=== PATIENT | female | born 1995 | race Caucasian/White ===

== ENCOUNTER 2020-02-19 12:17 | Emergency (ER) | payer SELFPAY ==
[2020-02-19 12:30] VITALS: BP 134/72; PULSE 91; RESP 16; TEMP 37.1; O2SAT 99
--- NOTE | 2020-02-19 12:38 | ED.SKABFB ---
HPI - Skin/Abscess/Foreign Bdy General Chief complaint: Skin/Abscess/Foreign Body Stated complaint: rash Time Seen by Provider: 02/19/20 12:30 Source: patient Mode of arrival: ambulatory Limitations: no limitations History of Present Illness HPI narrative: Xochitl Diaz is a 24 yo female with no PMH who comes to express care with 1 day history of red itchy rash on ankle that is spread to the left side of her lower back and now onto her cheek. She states she was wearing sandals and was walking through tall grass yesterday. Related Data Allergies Allergy/AdvReac Type Severity Reaction Status Date / Time copper Allergy Mild Rash Verified 02/19/20 12:34 nickel Allergy Mild Rash Verified 02/19/20 12:34 silver Allergy Mild Rash Verified 02/19/20 12:34 No Known Drug Allergies Allergy Unknown Other Verified 02/19/20 12:34 METALS Allergy Mild RASH Uncoded 02/19/20 12:34 Review of Systems Review of Systems: Narrative: CONSTITUTIONAL: Denies fever, chills, sweats. EYES: Denies visual changes, redness, discharge. ENT: Denies rhinorrhea, congestion, sore throat, otalgia. CARDIOVASCULAR: Denies chest pain, palpitations, edema. RESPIRATORY: Denies dyspnea, wheezing, cough GASTROINTESTINAL: Denies abdominal pain, nausea, vomiting, diarrhea. GENITOURINARY: Denies dysuria, hematuria, abnormal discharge SKIN: Denies rash or itching. Rash with itching on right ankle lower left back right cheek upper left cheek NEUROLOGIC: Denies numbness, or focal weakness. PSYCHIATRIC: Denies anxiety or depression. PMFSH Surgical History Surgical History (Updated 02/19/20 @ 12:41 by Janet Payne CNP) H/O knee surgery Family History Family History Other Breast cancer Social History Social History (Updated 02/19/20 @ 12:41 by Janet Payne CNP) Smoking status: Current every day smoker Tobacco type: e-cigarettes/vaping Alcohol intake: never Gender identity (if verbalized by the patient): Female Comments Social hx reviewed, there is no medical family or social history that is relevant to the current problem for which the patient is being seen today Exam Narrative: Exam Narrative: GENERAL: This is a well-nourished, well-developed patient, in mild distress. HEAD: normocephalic, atraumatic. EYES: Sclera clear/white. Vision is grossly intact. EARS: External ears normal, auditory canals clear and without drainage, TMs normal without perforation. Hearing grossly intact. NOSE: External nose normal without nasal discharge, nares without redness, no rhinorrhea. THROAT: Mucous membranes moist, posterior pharynx NECK: Neck supple, non-tender CARDIOVASCULAR: Regular rate and rhythm without murmurs, gallops, or rubs. RESPIRATORY: Clear to auscultation. Breath sounds equal bilaterally. No wheezes, rales, or rhonchi. GASTROINTESTINAL: Abdomen soft, non-tender, SKIN: warm, intact with no suspicious lesions or rash, good texture and turgor. Maculopapular rash on medial side of right ankle, lower left back, light rash on left upper cheek, no vesicular lesions NEURO: awake, alert, and oriented to person, place and time. There were no obvious focal neurologic abnormalities. Steady gait EXTREMITIES: Normal range of motion. BACK: Nontender without deformity Course Course Emergency Course: Started taper pack and discussed use of Benadryl lotion and tablets for itching Vital Signs Vital signs: Vital Signs Temperature 98.7 F 02/19/20 12:30 Pulse Rate 91 02/19/20 12:30 Respiratory Rate 16 02/19/20 12:30 Blood Pressure 134/72 02/19/20 12:30 Pulse Oximetry 99 02/19/20 12:30 Temperature 98.7 F 02/19/20 12:30 Pulse Rate 91 02/19/20 12:30 Respiratory Rate 16 02/19/20 12:30 Blood Pressure 134/72 02/19/20 12:30 Pulse Oximetry 99 02/19/20 12:30 MDM - Skin/Abscess/Foreign Bdy Differential Diagnosis Differential diagnosis: Likely cellulitis, insect bites and
== END 2020-02-19 12:50 | disposition home or self-care (01) ==
PROVIDERS: Emergency Provider Nurse Practitioner
DX: L23.7 Allergic contact dermatitis due to plants, except food (principal); F17.290 Nicotine dependence, other tobacco product, uncomplicated
CPT/HCPCS: 99213; G0463

== ENCOUNTER 2020-09-02 20:07 | Emergency (ER) | payer MEDICAID, SELFPAY ==
[2020-09-02 20:12] VITALS: BP 136/78; PULSE 90; RESP 16; TEMP 36.9; O2SAT 100
--- NOTE | 2020-09-02 21:50 | ED.WOUNDLAC ---
HPI - Wound/Laceration General Chief Complaint: Wound/Laceration Stated Complaint: ?SPIDER BITES Time Seen by Provider: 09/02/20 20:19 Source: patient Mode of arrival: ambulatory Limitations: no limitations History of Present Illness HPI narrative: Patient is a 25-year-old female with a history of cellulitis, abscess who presents for evaluation of possible insect bite to the back of her left leg and left third toe. Patient reports itching, redness at the site. She has had some drainage from the lesion on the back of her left leg. She noticed these this morning. Patient has not tried any [id number] medications. She does have a history of cellulitis and axillary abscesses that have been drained in the past. Patient denies any purulent discharge. No other lesions. Related Data Allergies Allergy/AdvReac Type Severity Reaction Status Date / Time copper Allergy Mild Rash Verified 09/02/20 20:16 nickel Allergy Mild Rash Verified 09/02/20 20:16 silver Allergy Mild Rash Verified 09/02/20 20:16 No Known Drug Allergies Allergy Unknown Other Verified 09/02/20 20:16 METALS Allergy Mild RASH Uncoded 09/02/20 20:16 Review of Systems Review of Systems: Narrative: CONSTITUTIONAL: Denies fever CARDIOVASCULAR: Denies chest pain RESPIRATORY: Denies cough or dyspnea. GASTROINTESTINAL: Denies abdominal pain SKIN: Denies rash, reports skin lesion/irritation to back of left leg and left toe MUSCULOSKELETAL: Denies back pain NEUROLOGIC: Denies headache PMFSH Past Medical History Medical History (Updated 09/02/20 @ 22:01 by Lexi Stapleton MD) Abscess Cellulitis Surgical History Surgical History (Updated 09/02/20 @ 22:01 by Lexi Stapleton MD) H/O knee surgery Family History Family History Other Breast cancer Social History Social History Smoking status: Current every day smoker Tobacco type: e-cigarettes/vaping Alcohol intake: never Gender identity (if verbalized by the patient): Female Exam Narrative: Exam Narrative: GENERAL: Awake, alert, conversant HEAD: Normocephalic, atraumatic. EYES: PERRLA and EOMI. ENT: Nares clear, no rhinorrhea or epistaxis. Mucous membranes moist. NECK: Supple. CHEST: No respiratory distress, breathing even and non labored HEART: Regular rate, sinus rhythm ABDOMEN:Non distended, non tender EXTREMITIES: Normal range of motion. No edema. SKIN: Warm, dry, 1 cm superficial lesion draining serous discharge to the posterior aspect of the left calf. Mild induration and erythema. No purulent discharge. No crepitus. No calf tenderness. No linear streaking erythema. Small area redness to the left, third toe. Nontender. No vesicles. No purulent discharge. No paronychia. NEURO:No focal deficits. Alert and oriented x3 Course Vital Signs Vital signs: Vital Signs Temperature 36.9 C 09/02/20 20:12 Pulse Rate 90 09/02/20 20:12 Respiratory Rate 16 09/02/20 20:12 Blood Pressure 136/78 09/02/20 20:12 Pulse Oximetry 100 09/02/20 20:12 Temperature 36.9 C 09/02/20 20:12 Pulse Rate 90 09/02/20 20:12 Respiratory Rate 16 09/02/20 20:12 Blood Pressure 136/78 09/02/20 20:12 Pulse Oximetry 100 09/02/20 20:12 MDM - Wound/Laceration MDM Narrative Medical decision making narrative: Patient presented for a lesion to the back of the left calf and left toe. At the time of assessment, ABCs are intact and vital signs are stable. No signs to be suggestive of severe cellulitis. No abscess that is drainable. Perhaps this is some sort of insect bite versus developing cellulitis. Given the induration and redness present on the back of the left calf, I did want to start the patient on antibiotics especially given her predisposition to cellulitis and abscess. Patient advised that she could take Benadryl for itchiness. She was advised to keep the area aziza
== END 2020-09-02 22:03 | disposition home or self-care (01) ==
PROVIDERS: Emergency Provider Emergency Medicine
DX: L98.9 Disorder of the skin and subcutaneous tissue, unspecified (principal)
CPT/HCPCS: 99283

== ENCOUNTER 2021-07-25 17:10 | Emergency (ER) | payer OTHER, SELFPAY ==
[2021-07-25 17:15] VITALS: BP 128/72; PULSE 108; RESP 14; TEMP 36.6; O2SAT 99
[2021-07-25 17:28] LABS: Basophils Percent Auto 0.3 % (0.2-1.2); Eosinophils Absolute Auto 0.2 K/mm3 (0-0.3); Eosinophils Percent Auto 2.3 % (0-4.4); Hematocrit 42.4 % (37.0-47.0); Immature Granulocyte Absolute 0.02 K/mm3 (0.00-0.031); Immature Granulocyte Percent A 0.3 % (0-0.5); Lymphocytes Absolute Auto 1.11 K/mm3 (0.9-3.2); Lymphocytes Percent Auto 14.5 % (18.3-44.2); Mean Corpuscular Hemoglobin 29.4 pg (26-34); Mean Corpuscular Volume 88.9 fl (80-100); Mean Platelet Volume 10.2 fl (7.4-10.4); Monocytes Absolute Auto 0.5 K/mm3 (0.1-0.6); Monocytes Percent Auto 6.3 % (2.6-8.5); Neutrophils Absolute Auto 5.9 K/mm3 (1.3-6.7); Neutrophils Percent Auto 76.3 % (45.5-73.1); Platelet Count Result 254 k/mm3 (150-375); Red Blood Count 4.77 M/mm3 (4.2-5.4); Red Cell Distribution Width 12.7 % (11.5-14.5); White Blood Count 7.7 K/mm3 (4.5-10.0)
[2021-07-25 17:41] LABS: Anion Gap 10 mmol/L (8-16); Blood Urea Nitrogen 13 mg/dL (7-17); Calcium 9.3 mg/dL (8.4-10.2); Carbon Dioxide 23 mmol/L (22-30); Chloride 104 mmol/L (98-107); Estimated CRCL calculation 103 ml/min; Estimated Glomerular Filt Rate > 60; Glucose 95 mg/dL (65-110); Potassium 4.1 mmol/L (3.4-5.0); Sodium 137 mmol/L (137-145)
[2021-07-25 17:58] VITALS: BP 119/78; PULSE 76; RESP 18; O2SAT 99
[2021-07-25 18:00] LABS: Add Urine Microscopic? YES; Appearance Urine Cloudy (Clear); Bilirubin Urine Negative (Negative); Blood Urine Negative (Negative); Color Urine Yellow (Yellow); Glucose Urine UA Negative (Negative); Ketones Urine Negative (Negative); Leukocyte Esterase Ur Negative LEU/UL (Negative); Nitrate Urine Negative (Negative); Protein Urine Negative (Negative); Specific Grav Ur 1.026 (1.001-1.035); Urobilinogen Urine Negative mg/dL (<2.0)
[2021-07-25 18:02] LABS: Bacteria Urine Trace /hpf; Mucus Urine Rare /lpf; Squamous Epithelial Cell Urine Moderate /hpf (Few)
[2021-07-25] MEDS: SODIUM CHLORIDE 0.9% IV 1,000 ML 999 ML IV CONT (18:26)
[2021-07-25] MEDS: KETOROLAC 30 MG/ML VIAL (*BKC) IV PUSH (18:26)
--- NOTE | 2021-07-25 18:57 | ED.NAVMDI ---
HPI - Nausea/Vomiting/Diarrhea General Chief complaint: Nausea/Vomiting/Diarrhea Stated complaint: diarrhea/chills/back pain Time Seen by Provider: 07/25/21 18:05 Source: patient and family Mode of arrival: ambulatory Limitations: no limitations History of Present Illness HPI Narrative: 26 years old white female presents with general body aches, low-grade fever, nausea, frequent watery diarrhea, lethargy and no energy started this morning. Patient is not vaccinated for COVID-19. Patient denies sick contact. Patient denies any sick family member. Related Data Allergies Allergy/AdvReac Type Severity Reaction Status Date / Time copper Allergy Mild Rash Verified 07/25/21 18:00 nickel Allergy Mild Rash Verified 07/25/21 18:00 silver Allergy Mild Rash Verified 07/25/21 18:00 No Known Drug Allergies Allergy Unknown Other Verified 07/25/21 18:00 METALS Allergy Mild RASH Uncoded 07/25/21 18:00 Review of Systems Review of Systems: CONSTITUTIONAL: Denies fever, chills, or sweats. EYES: Denies visual changes, redness, or discharge. ENT: Denies rhinorrhea, congestion, sore throat, or otalgia. CARDIOVASCULAR: Denies chest pain, palpitations, or edema. RESPIRATORY: Denies cough or dyspnea. GASTROINTESTINAL: Denies abdominal pain, nausea, vomiting, or diarrhea. GENITOURINARY: Denies dysuria or hematuria. SKIN: Denies rash or itching. MUSCULOSKELETAL: Denies back pain, joint pain, or myalgia. NEUROLOGIC: Denies headache, numbness, or weakness. PSYCHIATRIC: Denies anxiety or depression. PMFSH Past Medical History Medical History Abscess Cellulitis Surgical History Surgical History H/O knee surgery Family History Family History Other Breast cancer Social History Social History Smoking status: Current every day smoker Tobacco type: e-cigarettes/vaping Alcohol intake: never Gender identity (if verbalized by the patient): Female Exam Narrative: General appearance: Well-developed, well-nourished Skin: Normal color Head: Normocephalic, nontraumatic Eyes: Clear conjunctiva ENT: Oropharynx normal, ears normal, nose normal Neck: Supple, nontender Chest and respiratory: Airway patent, no respiratory distress, no accessory muscle use Heart: Regular rate/rhythm Abdomen: Soft, nontender, no organomegaly, quiet bowel sounds Vascular: Normal peripheral pulses, normal capillary refill. Musculoskeletal: Normal range of motion, nontender back Neurologic: Alert and oriented ?3, [employer] is normal as tested, no gross motor deficit Course Course Emergency Course: Stable, improved Vital Signs Vital signs: Vital Signs Temperature 36.6 C 07/25/21 17:15 Pulse Rate 108 H 07/25/21 17:15 Respiratory Rate 14 07/25/21 17:15 Blood Pressure 128/72 07/25/21 17:15 Pulse Oximetry 99 07/25/21 17:15 Temperature 36.6 C 07/25/21 17:15 Pulse Rate 76 07/25/21 17:58 Respiratory Rate 18 07/25/21 17:58 Blood Pressure 119/78 07/25/21 17:58 Pulse Oximetry 99 07/25/21 17:58 MDM - Nausea/Vomiting/Diarrhea MDM Narrative Medical decision making narrative: Viral gastroenteritis is my concern. Covid test ordered, IV fluid, labs. Differential Diagnosis Differential diagnosis: Likely gastroenteritis and dehydration Lab Data Result diagrams: 07/25/21 17:21 07/25/21 17:21 Labs: Lab Results 07/25/21 07/25/21 07/25/21 Range/Units 17:21 17:21 17:37 WBC 7.7 (4.5-10.0) K/mm3 RBC 4.77 (4.2-5.4) M/mm3
[2021-07-25 19:32] VITALS: BP 105/66; PULSE 78; RESP 18; O2SAT 99
[2021-07-27 19:26] LABS: SARS-CoV-2 RNA PCR Negative
== END 2021-07-25 19:34 | disposition home or self-care (01) ==
PROVIDERS: Emergency Provider Emergency Medicine; PCP Family Medicine
DX: K52.9 Noninfective gastroenteritis and colitis, unspecified (principal); Z20.822 Contact with and (suspected) exposure to COVID-19; F17.290 Nicotine dependence, other tobacco product, uncomplicated
CPT/HCPCS: 36415; 80048; 81001; 81025; 85025; 96361; 96374; 99284; C9803; J1885; J7030; U0003; U0005

== ENCOUNTER 2021-08-05 22:10 | Emergency (ER) | payer OTHER, SELFPAY ==
[2021-08-05 22:19] VITALS: BP 134/81; PULSE 88; RESP 16; TEMP 36.7; O2SAT 99
--- NOTE | 2021-08-05 22:27 | ED.DENTAL ---
HPI - Dental/Oral General Chief complaint: Dental/Oral Stated complaint: tooth abcess Time Seen by Provider: 08/05/21 22:13 History of Present Illness HPI Narrative: Patient is a 26-year-old female who presents ER with dental abscess. Has developed swelling to the intraoral aspect of the left lower jaw throughout the day. Radiates into her neck and ear. No fevers or chills or sweats. No difficulty breathing or swallowing. Related Data Allergies Allergy/AdvReac Type Severity Reaction Status Date / Time copper Allergy Mild Rash Verified 08/05/21 22:21 nickel Allergy Mild Rash Verified 08/05/21 22:21 silver Allergy Mild Rash Verified 08/05/21 22:21 No Known Drug Allergies Allergy Unknown Other Verified 08/05/21 22:21 METALS Allergy Mild RASH Uncoded 08/05/21 22:21 Review of Systems Constitutional: Constitutional: Denies chills and Denies fever(s) ENT: Denies dysphagia, Denies nasal congestion and Denies sore throat Comments: Dental abscess PMFSH Past Medical History Medical History Abscess Cellulitis Surgical History Surgical History H/O knee surgery Family History Family History Other Breast cancer Social History Social History Smoking status: Current every day smoker Tobacco type: e-cigarettes/vaping Alcohol intake: never Gender identity (if verbalized by the patient): Female Exam Narrative: GENERAL: Well-appearing, well-nourished, and in no acute distress. HEAD: Normocephalic, atraumatic. ENT: Mucous membranes moist. Abscess at the base of tooth 18 and 19. NEURO: Alert and oriented x3. PSYCH: Normal mood and affect. Course Course Emergency Course: Patient tolerated drainage. Discharge home. Vital Signs Vital signs: Vital Signs Temperature 98.1 F 08/05/21 22:19 Pulse Rate 88 08/05/21 22:19 Respiratory Rate 16 08/05/21 22:19 Blood Pressure 134/81 08/05/21 22:19 Pulse Oximetry 99 08/05/21 22:19 Temperature 98.1 F 08/05/21 22:19 Pulse Rate 88 08/05/21 22:19 Respiratory Rate 16 08/05/21 22:19 Blood Pressure 134/81 08/05/21 22:19 Pulse Oximetry 99 08/05/21 22:19 Procedures Abscess I/D oral: Date of Incision: 08/05/21 Time of Incision: 22:25 Technique: needle aspiration Irrigation: No Packing used?: none I&D Results: Pus Discharge Plan Discharge Clinical Impression: Dental abscess Patient Disposition: Home, Self-Care Condition: Stable Instructions: Antibiotic Form, Dental Abscess (ED) Additional Instructions: Return the ER if you cannot breathe, you cannot swallow, you have worsening swelling within the mouth, you have other concerns. Prescriptions: New amoxicillin-pot clavulanate [Augmentin] 875-125 mg tablet 1 tablet PO Q12H Qty: 20 RF: 0 hydrocodone-acetaminophen 5-325 mg tablet 1 tablet PO Q6H PRN (Reason: pain) Qty: 10 RF: 0 No Action loperamide [Imodium A-D] 2 mg capsule 2 mg PO Q4H PRN (Reason: loose stool) Qty: 14 RF: 0 cephalexin [Keflex] 500 mg capsule 500 mg PO Q8H 10 Days Qty: 30 RF: 0 diphenhydramine HCl [Benadryl] 25 mg capsule 25 mg PO TID PRN (Reason: allergic reaction) Qty: 14 RF: 0 acetaminophen 500 mg capsule 500 mg PO Q6H PRN (Reason: fever or pain) Qty: 30 RF: 0 Follow-up/Referrals: Dental Referral Line [Outside] - 1 Week Escamilla,MD James [Primary Care Provider] - Stand Alone Forms: Work/School Release IP
[2021-08-05 23:10] VITALS: BP 130/93; PULSE 81; RESP 18; TEMP 36.3; O2SAT 97
== END 2021-08-05 23:11 | disposition home or self-care (01) ==
PROVIDERS: Emergency Provider Emergency Medicine; PCP Family Medicine
DX: K04.7 Periapical abscess without sinus (principal); F17.290 Nicotine dependence, other tobacco product, uncomplicated
CPT/HCPCS: 41800; 99283

== ENCOUNTER 2024-02-27 10:11 | Emergency (ER) | payer OTHER, SELFPAY ==
[2024-02-27 10:21] VITALS: BP 137/81; PULSE 79; RESP 16; TEMP 36.8; O2SAT 100
--- NOTE | 2024-02-27 10:29 | ED.URI ---
HPI - URI/Sore Throat General Chief Complaint: Upper Respiratory Infection Stated Complaint: Sore Throat History of Present Illness HPI Narrative: 28-year-old female presented for complaint of sore throat cough over the past 2 days. Denies shortness breath, wheezing, nausea, vomiting, fevers or lethargy. Denies sick contacts. She took Tylenol yesterday for symptoms. Related Data Home Medications Medication Instructions Recorded Confirmed lisdexamfetamine 20 mg capsule 20 mg PO DAILY 02/27/24 02/27/24 (Vyvanse) Allergies Allergy/AdvReac Type Severity Reaction Status Date / Time copper Allergy Mild Rash Verified 02/27/24 10:34 nickel Allergy Mild Rash Verified 02/27/24 10:34 silver Allergy Mild Rash Verified 02/27/24 10:34 No Known Drug Allergies Allergy Unknown Other Verified 02/27/24 10:34 METALS Allergy Mild RASH Uncoded 02/27/24 10:34 Review of Systems Review of Systems: CONSTITUTIONAL: Denies body aches, fever, chills, or sweats. EYES: Denies visual changes, redness, or discharge. ENT: Reports sore throat Denies rhinorrhea, congestion, or otalgia. CARDIOVASCULAR: Denies chest pain, palpitations, or edema. RESPIRATORY: Denies dyspnea. SKIN: Denies rash, itching, or wounds. MUSCULOSKELETAL: Denies back pain, joint pain, or myalgia. NEUROLOGIC: Denies headache PMFSH Past Medical History Medical History Abscess Cellulitis Surgical History Surgical History H/O knee surgery Family History Family History Other Breast cancer Social History Social History Smoking status: Current every day smoker Tobacco type: e-cigarettes/vaping Alcohol intake: never Gender identity (if verbalized by the patient): Female Exam Narrative: GENERAL: well-appearing, no acute distress. EYES: conjunctivae clear ENT: Mucous membranes moist. TM pearly jacome with normal light reflex bilaterally; no tragal tenderness. Oropharynx not erythematous without lesions. Tonsils enlarged 1+ and without exudate. No drooling, no hoarseness, no trismus, uvula midline. No tripod positioning, hot potato voice, or soft palate swelling. NECK: Supple. No lymphadenopathy CHEST: Clear to auscultation, breath sounds equal. No respiratory distress, speaks in full sentences. HEART: Regular rate and rhythm. No murmur heard. SKIN: Warm, dry, no rash. NEURO: Alert and oriented x3. Course Course Emergency Course: Patient is aware of diagnosis, understands and agrees to treatment plan. Anticipatory guidance given. Patient agrees to follow-up as directed and is aware of reasons to seek care at the emergency department. Portions of this record may have been created with voice recognition software Level of Care: Express Care Visit Vital Signs Vital signs: Vital Signs Temperature 98.2 F 02/27/24 10:21 Pulse Rate 79 02/27/24 10:21 Respiratory Rate 16 02/27/24 10:21 Blood Pressure 137/81 02/27/24 10:21 Pulse Oximetry 100 02/27/24 10:21 Oxygen Delivery Room Air 02/27/24 10:21 Temperature 98.2 F 02/27/24 10:21 Pulse Rate 79 02/27/24 10:21 Respiratory Rate 16 02/27/24 10:21 Blood Pressure 137/81 02/27/24 10:21 Pulse Oximetry 100 02/27/24 10:21 Oxygen Delivery Room Air 02/27/24 10:21 MDM - URI/Sore Throat MDM Narrative Medical decision making narrative: Neg strep result reviewed with pt. Advise supportive treatments. Patient is appropriate for outpatient treatment and follow-up. Differential Diagnosis Differential diagnosis: Likely upper respiratory infection, viral infection and pharyngitis Lab Data Labs: Strep Screen Presumptive Negative *(Reference Range: Negative)* Discharge Pl
== END 2024-02-27 10:45 | disposition home or self-care (01) ==
PROVIDERS: Emergency Provider Nurse Practitioner Family; PCP Family Medicine
DX: J02.9 Acute pharyngitis, unspecified (principal); F17.290 Nicotine dependence, other tobacco product, uncomplicated
CPT/HCPCS: 87081; 87880; 99213; G0463

== ENCOUNTER 2024-09-25 08:03 | Emergency (ER) | payer OTHER, SELFPAY ==
[2024-09-25 08:08] VITALS: BP 140/110; PULSE 103; RESP 16; TEMP 36.6; O2SAT 98
[2024-09-25 08:30] VITALS: BP 147/86; PULSE 92; RESP 16; O2SAT 99
[2024-09-25] MEDS: ALPRAZolam (*CRX) 0.5 MG TABLET PO (08:48)
[2024-09-25 09:15] VITALS: BP 126/87; PULSE 81; RESP 16; O2SAT 98
--- NOTE | 2024-09-25 09:36 | ED.GENADULT ---
HPI - General Adult General Chief complaint: Anxiety Stated complaint: anxiety Time Seen by Provider: 09/25/24 08:19 History of Present Illness HPI narrative: Patient is a 29-year-old female who presents ER with anxiety. Not currently on anxiety medication. She does take medicine for ADHD. 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 She reports she had to leave work because she is just crying. No SI or HI. No alleviating factors identified. Patient reports she will get anxious with full then caused chest tightness and dyspnea. No heart issues. Related Data Home Medications ?Medication ?Instructions ?Recorded ?Confirmed ?Last Taken ?Type lisdexamfetamine 20 mg capsule 20 mg PO DAILY 02/27/24 02/27/24 Unknown History (Vyvanse) Allergies Allergy/AdvReac Type Severity Reaction Status Date / Time copper Allergy Mild Rash Verified 02/27/24 10:34 nickel Allergy Mild Rash Verified 02/27/24 10:34 silver Allergy Mild Rash Verified 02/27/24 10:34 No Known Drug Allergies Allergy Unknown Other Verified 02/27/24 10:34 METALS Allergy Mild RASH Uncoded 02/27/24 10:34 Review of Systems Review of Systems: All systems reviewed & are unremarkable except as noted in HPI and below Constitutional: Constitutional: Reports no additional constitutional complaints Cardiovascular: Cardiovascular: Reports no additional cardiovascular complaints Respiratory: Respiratory: Reports no additional respiratory complaints Psychiatric: Psychiatric: Reports anxiety, Denies homicidal ideation and Denies suicidal ideation PMFSH Past Medical History Medical History (Updated 09/25/24 @ 10:14 by Jr Aguiar MD) Anxiety ADHD Abscess Cellulitis Surgical History Surgical History H/O knee surgery Family History Family History Other Breast cancer Social History Social History Smoking status: Current every day smoker Tobacco type: e-cigarettes/vaping Alcohol intake: never Substance use type: does not use Gender identity (if verbalized by the patient): Female Exam Narrative: GENERAL: Tearful-appearing, well-nourished, and in no acute distress. HEAD: Normocephalic, atraumatic. ENT: Mucous membranes moist. CHEST: Clear to auscultation. No respiratory distress. HEART: Regular rate and rhythm. Normal peripheral pulses. ABDOMEN: Soft, nontender, nondistended, normal active bowel sounds. EXTREMITIES: Normal range of motion. No edema. NEURO: lert and oriented x3. PSYCH: Anxious and tearful. No HI/SI. Course Course Emergency Course: Xanax given for panic attack. Patient feels better. She has no medical complaints. Discharge home. Vital Signs Vital signs: Vital Signs Temperature 98 F 09/25/24 08:08 Pulse Rate 103 H 09/25/24 08:08 Respiratory Rate 16 09/25/24 08:08 Blood Pressure 140/110 H 09/25/24 08:08 Pulse Oximetry 98 09/25/24 08:08 Oxygen Delivery Room Air 09/25/24 08:08 Temperature 98 F 09/25/24 08:08 Pulse Rate 81 09/25/24 09:15 Respiratory Rate 16 09/25/24 09:15 Blood Pressure 126/87 09/25/24 09:15 Pulse Oximetry 98 09/25/24 09:15 Oxygen Delivery Room Air 09/25/24 08:08 Medical Decision Making Vital Signs Vital Signs: Vital Signs Temperature 98 F 09/25/24 08:08 Pulse Rate 103 H 09/25/24 08:08 Respiratory Rate 16 09/25/24 08:08 Blood Pressure 140/110 H 09/25/24 08:08 Pulse Oximetry 98 09/25/24 08:08 Oxygen Delivery Room Air 09/25/24 08:08 Temperature 98 F 09/25/24 08:08 Pulse Rate 81 09/25/24 09:15 Respiratory Rate 16 09/25/24 09:15 Blood Pressure 126/87 09/25/24 09:15 Pulse Oximetry 98 09/25/24 09:15 Oxygen Delivery Room Air 09/25/24 08:08 Discharge Plan Discharge Clinical Impression: Anxiety attack Patient Disposition: Home, Self-Care Condition: Stable Instructions: Anxiety (ED) Additional Instructions: Please return to the emergency department if you develop severe and persistent chest pain, difficulty breathing, dizziness, leg swelling or if you are coughing up blood as these can be signs of a medical emergency. Please call your doctor for a follow up appointment to determine the need for further testing. Patient Language: Upper Sorbian Prescriptions: New alprazolam [Xanax] 0.25 mg tablet 0.25 mg PO TID PRN (Reason: anxiety) Qty: 7 0RF No Action lisdexamfetamine [Vyvanse] 20 mg capsule 20 mg PO DAILY Follow-up/Referrals: Andi,MD James [Primary Care Provider] -
== END 2024-09-25 10:38 | disposition home or self-care (01) ==
PROVIDERS: Emergency Provider Emergency Medicine; PCP Family Medicine
DX: F41.9 Anxiety disorder, unspecified (principal); F90.9 Attention-deficit hyperactivity disorder, unspecified type; F17.290 Nicotine dependence, other tobacco product, uncomplicated
CPT/HCPCS: 99283; A9270

== ENCOUNTER 2024-12-16 13:46 | Emergency (ER) | payer SELFPAY ==
--- NOTE | ~2024-12-16 | XR_ITS ---
XR knee RT min 4V Ordering provider: Valentina Meredith PA-C History: . right knee pain . Comparison: None. FINDINGS: BONES: No definite acute fracture or dislocation. Ossification of the insertion of the patellar tendon is noted. Lucency is seen in the area with possi bility of fracture in the tibial spine cannot be excluded. Clinical evaluation for tenderness advised . JOINT SPACES: Normal. SOFT TISSUES: Normal. IMPRESSION: No definite acute osseous abnormality right knee. Ossification of the patellar tendon versus fracture in the tibial spine. Reviewed, dictated and finalized at location A.
--- NOTE | ~2024-12-16 | XR_ITS ---
XR chest 2V Ordering provider: Valentina Meredith PA-C History: 29 years Female with . cough . Comparison: April 18, 2019 FINDINGS: MEDIASTINUM: The cardiac silhouette is not enlarged. LUNGS: No infiltrates, effusions or pneumothorax. OTHER: No free air under the diaphragm. IMPRESSION: No acute cardiopulmonary pathology. Reviewed, dictated and finalized at location A.
[2024-12-16 14:25] VITALS: BP 139/88; PULSE 92; RESP 16; TEMP 36.4; O2SAT 100
--- NOTE | 2024-12-16 14:58 | ED.FEMALEGU ---
HPI - Female Genitourinary General Chief complaint: Urogenital-Female <Valentina Meredith PA-C - Last Filed: 12/19/24 12:17> Stated complaint: multiple complaint, UTI, knee pain sick <Valentina Meredith PA-C - Last Filed: 12/19/24 12:17> Time Seen by Provider: 12/16/24 14:58 <Valentina Meredith PA-C - Last Filed: 12/19/24 12:17> Focused HPI: This is a 29 year old female that presents to the ER for multiple complaints. Reports left flank pain. Concerned she may have a kidney infection. Reports she has also been struggling with cold symptoms. Reports cough, congestion, headache, sore throat. Also reports right knee pain. Reports she tripped and fell onto it. GENERAL: Well-appearing, well-nourished, and in no acute distress. HEAD: Normocephalic, atraumatic. CHEST: Clear to auscultation. ?No respiratory distress. HEART: Regular rate and rhythm.? NEURO: ?Alert and oriented x3. Patient screened in triage and initial orders placed.? ?Additional care and disposition to be based upon?diagnostic testing and treatment. <Valentina Meredith PA-C - Last Filed: 12/19/24 12:17> Source: patient <Kevin Oleary PA-C - Last Filed: 12/17/24 02:15> Mode of arrival: ambulatory <Kevin Oleary PA-C - Last Filed: 12/17/24 02:15> Limitations: no limitations <Kevin Oleary PA-C - Last Filed: 12/17/24 02:15> History of Present Illness HPI Narrative: Agree with MSE note above. <TERRY Pink Last Filed: 12/17/24 02:15> Related Data Home medications: Home Medications ?Medication ?Instructions ?Recorded ?Confirmed ?Last Taken ?Type lisdexamfetamine 20 mg capsule 20 mg PO DAILY 02/27/24 02/27/24 Unknown History (Jm) <TERRY Aguilar Last Filed: 12/19/24 12:17> Allergies/Adverse reactions: Allergies Allergy/AdvReac Type Severity Reaction Status Date / Time copper Allergy Mild Rash Verified 02/27/24 10:34 nickel Allergy Mild Rash Verified 02/27/24 10:34 silver Allergy Mild Rash Verified 02/27/24 10:34 No Known Drug Allergies Allergy Unknown Other Verified 02/27/24 10:34 METALS Allergy Mild RASH Uncoded 02/27/24 10:34 <Valentina Meredith PA-C - Last Filed: 12/19/24 12:17> Review of Systems Review of Systems: All systems as dictated in HPI <Kevin Oleary PA-C - Last Filed: 12/17/24 02:15> PMFSH Past Medical History Medical History: Medical History (Updated 12/17/24 @ 00:00 by Elzbieta Tenorio) Anxiety ADHD Abscess Cellulitis <Valentina Meredith PA-C - Last Filed: 12/19/24 12:17> Surgical History Surgical History: Surgical History H/O knee surgery <TERRY Aguilar Last Filed: 12/19/24 12:17> Family History Family History: Family History Other Breast cancer <TERRY Aguilar Last Filed: 12/19/24 12:17> Social History Social History: Social History Smoking status: Current every day smoker Tobacco type: e-cigarettes/vaping Alcohol intake: never Substance use type: does not use Gender identity (if verbalized by the patient): Female <TERRY Aguilar Last Filed: 12/19/24 12:17> Exam Narrative: GENERAL: Well-appearing, well-nourished, and in no acute distress. HEAD: Normocephalic, atraumatic. EYES: PERRLA and EOMI. ENT: Nares clear, no rhinorrhea or epistaxis. Mucous membranes moist. Oropharynx without tonsillar hypertrophy exudate or other lesions. NECK: Supple. No adenopathy or masses. CHEST: No respiratory distress. Clear to auscultation. No wheezes rales or rhonchi HEART: Regular rate and rhythm. No murmur heard. Normal peripheral pulses. ABDOMEN: Soft, nontender, nondistended, normal active bowel sounds. MSK: Normal range of motion. No edema. RLE: No bruising swelling or tenderness throughout the knee joint. No effusion or deformity. Neurovascular intact distally. LLE: Benign SKIN: Warm, dry, no rash. NEURO: Alert and oriented x4. No focal deficits. PSYCH: Normal mood and affect. <Kevin Oleary PA-C - Last Filed: 12/17/24 02:15> Course Vital Signs Vital signs: Vital Signs Temperature 97.5 F L 12/16/24 14:25 Pulse Rate 92 12/16/24 14:25 Respiratory Rate 16 12/16/24 14:25 Blood Pressure 139/88 12/16/24 14:25 Pulse Oximetry 100 12/16/24 14:25 Oxygen Delivery Room Air 12/16/24 14:25 Temperature 98.3 F 12/16/24 18:53 Pulse Rate 89 12/16/24 18:53 Respiratory Rate 20 12/16/24 18:53 Blood Pressure 140/92 H 12/16/24 18:53 Pulse Oximetry 98 12/16/24 18:53 Oxygen Delivery Room Air 12/16/24 14:25 <Valentina Meredith PA-C - Last Filed: 12/19/24 12:17> Vital Signs Temperature 97.5 F L 12/16/24 14:25 Pulse Rate 92 12/16/24 14:25 Respiratory Rate 16 12/16/24 14:25 Blood Pressure 139/88 12/16/24 14:25 Pulse Oximetry 100 12/16/24 14:25 Oxygen Delivery Room Air 12/16/24 14:25 Temperature 98.3 F 12/16/24 18:53 Pulse Rate 89 12/16/24 18:53 Respiratory Rate 20 12/16/24 18:53 Blood Pressure 140/92 H 12/16/24 18:53 Pulse Oximetry 98 12/16/24 18:53 Oxygen Delivery Room Air 12/16/24 14:25 <TERRY Pink Last Filed: 12/17/24 02:15> MDM - Female Genitourinary MDM Narrative Medical decision making narrative: This is a 2-year-old female who presents to the ED for multiple complaints including flu-like illness and right knee pain. Vitals are normal. Exam remarkable for the above. Viral swabs are positive for influenza. Chest x-ray is negative for acute findings. Right knee x-ray is showing ossific denies verses acute fracture of the tibia. Patient is ambulatory without assistance. She has no significant tenderness over the tibia. Presentation is consistent with an ossific tendon rather than acute fracture. Presentation consistent with influenza and right knee patellar tendinitis Patient will be discharged in stable condition. Supportive measures discussed and return precautions given. Patient is understanding and agreeable with plan for discharge with PCP follow-up. <Kevin Oleary PA-C - Last Filed: 12/17/24 02:15> Lab Data Result diagrams: 12/16/24 15:28 12/16/24 15:28 <Valentina Meredith PA-C - Last Filed: 12/19/24 12:17> Labs: Lab Results 12/16/24 12/16/24 Range/Units 15:28 15:44 WBC 5.1 (4.5-10.0) K/mm3 RBC 4.81 (4.2-5.4) M/mm3 Hgb 13.8 (12.0-15.0) g/dL Hct 42.7 (37.0-47.0) % MCV 88.8 (80-100) fl MCH 28.7 (26-34) pg MCHC 32.3 (32-36) g/dl RDW 13.3 (11.5-14.5) % Plt Count 273 (150-375) k/mm3 MPV 10.2 (7.4-10.4) fl Immature Gran % (Auto) 0.2 (0-0.5) % Neut % (Auto) 46.8 (45.5-73.1) % Lymph % (Auto) 37.4 (18.3-44.2) % Labette % (Auto) 13.0 H (2.6-8.5) % Eos % (Auto) 1.8 (0-4.4) % Baso % (Auto) 0.8 (0.2-1.2) % Lymph # (Auto) 1.90 (0.9-3.2) K/mm3 Labette # (Auto) 0.7 H (0.1-0.6) K/mm3 Eos # (Auto) 0.1 (0-0.3) K/mm3 Baso # (Auto) 0.0 (0.0-0.1) K/mm3 Abs Immat Gran (auto) 0.01 (0.00-0.031) K/mm3 Absolute Neuts (auto) 2.4 (1.3-6.7) K/mm3 Absolute Nucleated RBC 0.000 (0.0-0.012) K/mm3 Nucleated RBC % 0.0 (0.0-0.2) % Sodium 138 (137-145) mmol/L Potassium 4.2 (3.4-5.0) mmol/L Chloride 102 (98-107) mmol/L Carbon Dioxide 24 (22-30) mmol/L Anion Gap 12 (4-12) mmol/L BUN 14 (7-17) mg/dL Creatinine 0.98 (0.7-1.0) mg/dL Estim Creat Clear Calc 88 ml/min Estimated GFR > 60 (59 - ) Glucose 81 (65-110) mg/dL Calcium 9.1 (8.4-10.2) mg/dL Total Bilirubin 0.4 (0.2-1.3) mg/dL AST 33 (14-36) U/L ALT 31 (6-35) U/L Alkaline Phosphatase 59 (38-126) U/L Total Protein 8.0 (6.3-8.2) g/dL Albumin 4.7 (3.5-5.1) g/dL Lipase 78 (23-300) U/L Urine Color Yellow (Yellow) Urine Appearance Clear (Clear) Urine pH 5.5 (5.0-9.0) Ur Specific Cochrane 1.026 (1.001-1.035) Urine Protein Trace (Negative) mg/dL Urine Glucose (UA) Negative (Negative) mg/dL Urine Ketones Negative (Negative) mg/dL Ur Blood (Man) Negative (Negative) Urine Nitrate Negative (Negative) Urine Bilirubin Negative (Negative) Urine Urobilinogen 0.2 (<2.0) mg/dL Leukocyte Esterase Rfl Negative (Negative) TONY/UL Urine RBC 0-2 (0-2) /hpf Urine WBC 0-5 (0-3) /hpf Ur Squamous Epith Cells Few (Few) /hpf Urine Bacteria 1+ H /hpf Urine Casts 0-2 POC Urine HCG, Qual Negative (Negative) Influenza A (RT-PCR) Positive A (Negative) Influenza B (RT-PCR) Negative (Negative) RSV (RT-PCR) Negative (Negative) SARS-CoV-2 RNA (RT-PCR) Negative (Negative) Group A Strep (PCR) Not detected (Negative) <Valentina Meredith PA-C - Last Filed: 12/19/24 12:17> Lab Results 12/16/24 12/16/24 Range/Units 15:28 15:44 WBC 5.1 (4.5-10.0) K/mm3 RBC 4.81 (4.2-5.4) M/mm3 Hgb 13.8 (12.0-15.0) g/dL Hct 42.7 (37.0-47.0) % MCV 88.8 (80-100) fl MCH 28.7 (26-34) pg MCHC 32.3 (32-36) g/dl RDW 13.3 (11.5-14.5) % Plt Count 273 (150-375) k/mm3 MPV 10.2 (7.4-10.4) fl Immature Gran % (Auto) 0.2 (0-0.5) % Neut % (Auto) 46.8 (45.5-73.1) % Lymph % (Auto) 37.4 (18.3-44.2) % Labette % (Auto) 13.0 H (2.6-8.5) % Eos % (Auto) 1.8 (0-4.4) % Baso % (Auto) 0.8 (0.2-1.2) % Lymph # (Auto) 1.90 (0.9-3.2) K/mm3 Labette # (Auto) 0.7 H (0.1-0.6) K/mm3 Eos # (Auto) 0.1 (0-0.3) K/mm3 Baso # (Auto) 0.0 (0.0-0.1) K/mm3 Abs Immat Gran (auto) 0.01 (0.00-0.031) K/mm3 Absolute Neuts (auto) 2.4 (1.3-6.7) K/mm3 Absolute Nucleated RBC 0.000 (0.0-0.012) K/mm3 Nucleated RBC % 0.0 (0.0-0.2) % Sodium 138 (137-145) mmol/L Potassium 4.2 (3.4-5.0) mmol/L Chloride 102 (98-107) mmol/L Carbon Dioxide 24 (22-30) mmol/L Anion Gap 12 (4-12) mmol/L BUN 14 (7-17) mg/dL Creatinine 0.98 (0.7-1.0) mg/dL Estim Creat Clear Calc 88 ml/min Estimated GFR > 60 (59 - ) Glucose 81 (65-110) mg/dL Calcium 9.1 (8.4-10.2) mg/dL Total Bilirubin 0.4 (0.2-1.3) mg/dL AST 33 (14-36) U/L ALT 31 (6-35) U/L Alkaline Phosphatase 59 (38-126) U/L Total Protein 8.0 (6.3-8.2) g/dL Albumin 4.7 (3.5-5.1) g/dL Lipase 78 (23-300) U/L Urine Color Yellow (Yellow) Urine Appearance Clear (Clear) Urine pH 5.5 (5.0-9.0) Ur Specific Cochrane 1.026 (1.001-1.035) Urine Protein Trace (Negative) mg/dL Urine Glucose (UA) Negative (Negative) mg/dL Urine Ketones Negative (Negative) mg/dL Ur Blood (Man) Negative (Negative) Urine Nitrate Negative (Negative) Urine Bilirubin Negative (Negative) Urine Urobilinogen 0.2 (<2.0) mg/dL Leukocyte Esterase Rfl Negative (Negative) TONY/UL Urine RBC 0-2 (0-2) /hpf Urine WBC 0-5 (0-3) /hpf Ur Squamous Epith Cells Few (Few) /hpf Urine Bacteria 1+ H /hpf Urine Casts 0-2 POC Urine HCG, Qual Negative (Negative) Influenza A (RT-PCR) Positive A (Negative) Influenza B (RT-PCR) Negative (Negative) RSV (RT-PCR) Negative (Negative) SARS-CoV-2 RNA (RT-PCR) Negative (Negative) Group A Strep (PCR) Not detected (Negative) <Kevin Oleary PA-C - Last Filed: 12/17/24 02:15> Critical Care Time Critical Care Time Critical Care Time: No <Valentina Meredith PA-C - Last Filed: 12/19/24 12:17> Discharge Plan Discharge Clinical Impression: Ossification of muscle, Influenza A <Valentina Meredith PA-C - Last Filed: 12/19/24 12:17> Patient Disposition: Home, Self-Care <Valentina Meredith PA-C - Last Filed: 12/19/24 12:17> Condition: Stable <Valentina Meredith PA-C - Last Filed: 12/19/24 12:17> Instructions: Antibiotic Form <Valentina Meredith PA-C - Last Filed: 12/19/24 12:17> Additional Instructions: Exam today is reassuring overall. Your flu test is positive. The symptoms should self resolve over the next 3 days. Your knee x-rays today show ossification of the patellar tendon. Please follow-up with PCP on this issue. Take ibuprofen 600 mg every 6 hours as needed for pain control. Use [id number] knee brace as well. If you have any new or worsening symptoms please return to the ER for further evaluation. <Valentina Meredith PA-C - Last Filed: 12/19/24 12:17> Patient Language: Albanian <Valentina Meredith PA-C - Last Filed: 12/19/24 12:17> Prescriptions: No Action lisdexamfetamine [Vyvanse] 20 mg capsule 20 mg PO DAILY alprazolam [Xanax] 0.25 mg tablet 0.25 mg PO TID PRN (Reason: anxiety) Qty: 7 0RF <Valentina Meredith PA-C - Last Filed: 12/19/24 12:17> Follow-up/Referrals: Andi,MD James [Primary Care Provider] - <Valentina Meredith PA-C - Last Filed: 12/19/24 12:17> Stand Alone Forms: Work/School Release IP <Valentina Meredith PA-C - Last Filed: 12/19/24 12:17> Time of Disposition: 18:32 <Valentina Meredith PA-C - Last Filed: 12/19/24 12:17> 18:32 <Kevin Oleary PA-C - Last Filed: 12/17/24 02:15>
--- OUTSIDE RECORDS SUMMARY | 2024-12-16 15:28 | XMS_ITS | Data Portability ---
Author Organization [facility] [place] Address [address] [place] [address] Assessment Encounter Date Assessment Date Assessment LastModified by Organization Details LastModified Time 03/10/2021 03/10/2021 Annual gynecological exam performed. Patient will come back in a year unless there are new symptoms. [email or web address] Not available 03/10/2021 11:46:57 Plan of Treatment Reminders Order Date Submit Date Provider Last Modified By Organization Details Last Modified Time Details Appointments None record ed. Lab None record ed. Referral None record ed. Procedures None record ed. Surgeries None record ed. Imaging None record ed. Medication Orders None record ed. Patient TargetsNo targets recorded. Patient InstructionsNo instructions recorded. Reason for Referral None Reported. Results Created Date Observation Date Name Description Value Unit Range Abnormal Flag Note LastModifiedBy Organization Detail LastModifiedTime 03/10/2003/10/2021 surgi frank patho logy study surgical pathology ([facility]) SEE RESULT S BELOW CASE REPOR T: Surgi frank Patho logy Repor t Case: [id number] Autho mag flynn Provi lucero: Inessa Lopez MD Colle cted: 03/10 1217 Order ing Locat ion: [place] Patho logy Recei tomasz: 03/11 0116 Patho logis t: Edson Fernandez MD Speci men: Perin eum, Skin Lesio n (Shell neum) FINAL DIAGN OSIS: Skin lesio n, perin eum, biops y: -Mariella te skin fragm ent with verru coid kerat osis, surfa ce ulcer ation and featu res sugge stive of condy zach acumi keely. Elect dayanara merrill jacob d by Edson Fernandez MD on 021 at 3:46 PM ----- ----- ----- ----- ----- ----- ----- ----- ----- ----- ----- ----- ----- ----- ----- ----- ----- ---- CHART ABLE COMME NT: This case has been revie wed by intra depar tment al consu ltati on, with agree ment. CLINI FRANK INFOR MATIO N: NOT PROVI DED MICRO SCOPI C DESCR IPTIO N: A micro scopi c exami natio n was perfo rmed. GROSS DESCR IPTIO N: A. Kathi eum. The speci men is recei tomasz in forma tasha label ed with the patie nt's name and demog raphi cs only. It consi sts of 2 hernandez-w natasha soft tissu e fragm ents each measu ring 0.1 cm in great est dimen eduardo. The speci men is submi tted entir gerald in casse tte A1. Gross ed by Jeni Yarbrough Not Available [facility] (Lab) [address], [place], [address], 03/14/2021 09:21:15 03/10/20 21 03/10/2021 pap, IG + refle x HPV if ASC-U image guided Pap, reflex HPV ASCUS only SEE RESULT S BELOW CASE REPOR T: Cytol ogy Gynec ologi frank Repor t Case: [id number] Autho mag flynn Provi lucero: Inessa Lopez MD Colle cted: 03/10 1217 Order ing Locat ion: [place] Patho logy Recei tomasz: 03/11 0115 First Scree n: Strut z, Willi am, CT Speci men: Scree sebastián Pap - Image d, Cervi x STATE MENT OF ADEQU ACY: Satis facto ry for evalu ation Trans forma tion zone compo nent prese nt FINAL DIAGN OSIS: Negat jez for Intra epith elial Lesio n or Missy rebekah Elect dayanara merrill jacob d by Nadir Fleming am, CT on 021 at 8:19 AM ----- ----- ----- ----- ----- ----- ----- ----- ----- ----- ----- ----- ----- ----- ----- ----- ----- ---- CHART ABLE COMME NT: Note: This speci men was revie wed by a Cytot echno logis t and/o r Patho logis t (as indic ated in this repor t) after evalu ation using the Thinp rep Imagi ng Syste m. CLINI FRANK INFOR MATIO N: Menst rual Statu s: LMP (if appli cable ): 2020 Clini frank Histo ry/Pr eviou s Pap: Type of Neopl song (if appli cable ): Other Histo ry: Hormo xu (if appli cable ): PAP EDUCA GETACHEW L NOTE: The Pap Test is a scree sebastián test with an inher ent false negat jez rate. Liqui d-bas e sampl ing may decre ase, but will not elimi kendrick, false negat jez resul ts. A negat jez resul t does not precl ude the prese nce and/o r devel opmen t of disea se, since the prese nce of abnor mal cells in the sampl e depen ds on the locat ion of the lesio n and sampl ing techn ique. Yoel nued regul ar scree sebastián is the best metho d of cance r preve ntion . If repor chau cytol ogic findi ng do not corre late with physi frank and/o r histo rical findi ngs, furth er inves tigat ion is recom thais d, as clini isiah ann nted. Not Available [facility] (Lab) [address], [place], [address], 03/14/2021 09:21:15 Result Notes None recorded. Problems Name Problem SNOMED Code Status Onset Date Resolution Date Notes Provider Name and Address Organization Details Recorded Time Normal pregnanc y in therongra angela 29873686400 4106 Completed 201603/10/2021 Encounte r for suprvsn of normal pregnanc y, third trimeste r;Practi ce ID: 0001 [facility] 11:03:02 Pregnanc y-induce d hyperten eduardo Completed 201703/10/2021 Gestatio nal htn w/o signific ant proteinu shawn, third trimeste r;Practi ce ID: 0001 [facility] 11:03:10 Non-prot einuric hyperten eduardo of pregnanc y [id number] Completed 201703/10/2021 Gestatnl htn without signific ant protein, comp childbir th;Pract ice ID: 0001 [facility] 11:03:01 Lacerati on of female perineum Completed 201703/10/2021 First degree perineal lacerati on during delivery ;Practic e ID: 0001 [facility] 11:02:56 Single live [id number] Completed 201703/10/2021 Single live ;Pr actice ID: 0001 [facility] 11:03:12 Gestatio n period, 38 weeks [id number] Completed 201703/10/2021 38 weeks gestatio n of pregnanc y;Practi ce ID: 0001 [facility] 11:02:54 Lochia finding Completed 201703/10/2021 Encounte r for routine postpart um follow-u p;Practi ce ID: 0001 Olinda bustamante [facility] 1 11:02:58 Emotiona l state finding Completed 201703/10/2021 Other specifie d anxiety disorder s;Practi ce ID: 0001 Olinda bustamante [facility] 11:02:42 Pregnanc y-induce d hyperten eduardo Completed 201703/10/2021 Pregnanc y-induce d hyperten eduardo without signific ant proteinu shawn, first trimeste r;Record ed Elsewher e: No Locat ion: [facility] S ource: EHR Hand Weaver elidia: N Ismati ce ID: 0001 Chet lable Time: 02:30:00 PM Olinda bustamante [facility] 1 11:03:08 Pregnanc y detectio n examinat ion Completed 201603/10/2021 Encounte r for pregnanc y test, result positive ;Recorde d Elsewher e: No Locat ion: [facility] S ource: EHR Hand Weaver elidia: N Ismati ce ID: 0001 Chet lable Time: 02:00:00 PM Olinda bustamante [facility] 1 11:03:05 Gestatio n period, 29 weeks [id number] Completed 201603/10/2021 29 weeks gestatio n of pregnanc y;Record ed Elsewher e: No Locat ion: [facility] S ource: EHR Hand Weaver elidia: N Practi ce ID: 0001 Chet lable Time: 02:45:00 PM Olindaeran Farias [facility] [address] 11:02:[address] Concept Completed 201603/10/2021 Maternal care for oth abnormal ity and damage, unsp;Rec orded Elsewher e: No Locat ion: [facility] S ource: EHR Hand Weaver elidia: N Practi ce ID: 0001 Chet lable Time: 01:00:00 PM Olinda bustamante [facility] 1 11:03:14 Gestatio n period, 24 weeks [id number] Completed 201603/10/2021 24 weeks gestatio n of pregnanc y;Record ed Elsewher e: No Locat ion: [facility] S ource: EHR Hand Weaver elidia: N Ismati ce ID: 0001 Chet lable Time: 02:30:00 PM Olinda bustamante [facility] 1 11:02:51 Gestatio n period, 21 weeks [id number] Completed 201603/10/2021 21 weeks gestatio n of pregnanc y;Record ed Elsewher e: No Locat ion: [facility] S ource: EHR Hand Weaver elidia: N Ismati ce ID: 0001 Chet lable Time: 01:00:00 PM Olinda bustamante [facility] 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 1 11:03:16 finding Completed 201603/10/2021 Matern care for oth or susp poor fetl grth, third tri, unsp;Rec orded Elsewher e: No Locat ion: [facility] S ource: EHR Hand Weaver elidia: N Ismati ce ID: 0001 Ceht lable Time: 02:30:00 PM Olinda bustamante [facility] 11:02:47 Amenorrh ea [id number] Completed 201603/10/2021 Amenorrh ea, unspecif ied;Juancarlos rded Elsewher e: No Locat ion: [facility] S ource: EHR Hand Weaver elidia: N Ismati ce ID: 0001 Chet lable Time: 04:15:00 PM Olindaeran Farias [facility] 11:02:40 finding Completed 201603/10/2021 Matern care for oth or susp poor fetl grth, 2nd tri, unsp;Rec orded Elsewher e: No Locat ion: [facility] S ource: EHR Hand Weaver elidia: N Ismati ce ID: 0001 Chet lable Time: 02:30:00 PM Olinda [facility] 11:02:45 Problem Notes None recorded. Procedures Surgical History Date Name Laterality Status Provider Name and Address Organization Details Recorded Time 7 Date of Last Pap Smear completed [facility] 03/10/2021 11:03:36 2 procedure on knee completed [facility] 03/10/2021 11:06:53 Imaging Results None recorded. Procedure Notes None recorded. Medical Equipment None Reported. Allergies No known drug allergies Medications Name Sig Start Date Stop Date Status Note LastModified by Organization Details LastModified Time acetamino phen 500 mg tablet TK 1 T PO Q 6 H PRN 03/10 completed Not Available Not Available Not Available Zoloft 50 mg tablet take 1 tablet by oral route every day 03/10 completed Prescribe d Elsewhere : No Locati on: [facility] Mo dify By: bchadiana Perez r DateTime: 8 08:59:42 AM Not Available Not Available Not Available cephalexi n 500 mg capsule TK ONE C PO Q 8 H 03/10 completed Not Available Not Available Not Available Banophen 25 mg capsule TK ONE C PO TID PRN 03/10 completed Not Available Not Available Not Available Zoloft 100 mg tablet take 1 tablet by oral route every day 03/10 completed Prescribe d Elsewhere : No Locati on: [facility] Jose whiteside By: bchappell Encounte r DateTime: 8 03:00:28 PM Not Available Not Available Not Available Vitals Date Recorded Body height Body mass index (BMI) Body weight Systolic blood pressure Diastolic blood pressure Provider Name and Address Organization Details Last Updated DateTime 03/10/2021 160.02 cm 39.7 kg/m2 985757.6 9 g 132 mm[Hg] 84 mm[Hg] Olinda Farias [facility] 11:02:04 Social History Question Answer Notes LastModified by Organizat ion Details LastModified Time Do You Have An Advance Directive? No Information n ot available 03/10/2021 What Is Your Level Of Alcohol Consumption? Occasional Information not available 03/10/2021 Are You Blind Or Do You Have Difficulty Seeing? No Information n ot available 03/10/2021 What Is Your Level Of Caffeine Consumption? Occasional Information not available 03/10/2021 How Much Tobacco Do You Chew? None Information not available 03/10/2021 In The 14 Days Before Symptom Onset, Have You Had Close Contact With A Laboratory-confirm ed COVID-19 While That Case Was Ill? No Information n ot available 03/10/2021 In The 14 Days Before Symptom Onset, Have You Had Close Contact With A Person Who Is Under Investigation For COVID-19 While That Person Was Ill? No Information not available 03/10/2021 Have You Been To An Area Known To Be High Risk For COVID-19? No Information not available 03/10/2021 Are You Deaf Or Do You Have Serious Difficulty Hearing? No Information not available 03/10/2021 What Type Of Diet Are You Following? REGULAR Information n ot available 03/10/2021 What Is The Highest Grade Or Level Of School You Have Completed Or The Highest Degree You Have Received? 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 No Information not available 03/10/2021 Do You Use Protection During Sex? Always Information not available 03/10/2021 Do You Use Your Seat Belt Or Car Seat Routinely? Yes Information not available 03/10/2021 Do You Have Smoke And Carbon Monoxide Detectors In Your Home? Yes Information not available 03/10/2021 How Much Tobacco Do You Smoke? No Information not available 03/10/2021 Do You Feel Stressed (tense, Restless, Nervous, Or Anxious, Or Unable To Sleep At Night)? [id number] Information not available 03/10/2021 Do You Use Any Illicit Or Recreational Drugs? No Information not available 03/10/2021 Do You Use Sunscreen Routinely? Yes Information not available 03/10/2021 Have You Used IV Drugs? No Information not available 03/10/2021 Sex: Unknown Functional Status Question Answer Note LastModified by Organization D etails LastModified Time Are you able to walk? YESWOREST Information not available 03/10/2021 What is your exercise level? Moderate Information not available 03/10/2021 Mental Status None recorded. Family History Relationship Description Onset Age of this Age Resolved Age Notes LastModified by Organization Details LastModified Time Maternal Grandmother Malignant neoplasm of uterus Not available 2020 11:02:08 Maternal Grandmother Malignant tumor of breast Not available 2020 11:02:08 Father Anxiety disorder Not available 2020 11:02:08 Father Depressive disorder Not available 2020 11:02:08 Mother Anxiety disorder Not available 2020 11:02:08 Mother Anemia Not available 03/10/2021 11:02:08 Paternal Grandmother Malignant tumor of breast Not available 2020 11:02:08 Sister Anemia Not available 03/10/2021 11:02:08 Sister Depressive disorder Not available 2020 11:02:08 Sister Disorder of thyroid gland Not available 2020 11:02:08 Sister Anxiety disorder Not available 2020 11:02:08 Medical History Condition Response Depression/ depression Y Gynecological History Statement/Question Response Date of LMP 02/23/2021 On BCP's at Conception? N N Was last menstrual period normal Y STIs/STDs N HPV Vaccine Y Duration of Flow (days) 5 Current Control Method None Age at First Child 20 Frequency of Cycle (Q days) 27 Sexually Active? Y N/A Age of first menstrual cycle 12 Date of Last Pap Smear 03/20/2017 Sexual Problems? N Desired Control Method Condoms LMP Definite N Obstetrics History GPAL:G 0 P 0 0 0 0 Past Encounters Encounter ID Performer Location Encounter Start Date Encounter Closed Date Diagnosis/Indication Diagnosis SNOMED-CT Code Diagnosis ICD10 Code Diagnosis Note [id number] Chuck Lopez MD [place] [address] [address] 03/10/2021 10:34:52 03/10/2021 12:15:07 Gynecologic examination [id number] Z01.419 This patient is here for her annual exam. A thorough history was taken. A physical exam was performed. Age appropriat e routine health screening was ordered, performed, and discussed. Recommende d testing was ordered. She was asked to follow up in one year. She will be informed of any test results. Lesion was removed in the perineum. It was a 2 mm pedunculat ed lesion. It was removed with pickups and scissors. He 7 nitrate was used to make it hemostatic . Pap - today Health Concerns Section Related Observation LastModified by Organization Detai ls LastModified Time None Recorded Concern Status LastModified by Organization Details LastModified Time None Recorded Advance Directives Directive N: Payers Encounter Date Sequence Insurance Name Policy Number Policy Nobles Covered Member ID Nobles Member ID Guarantor Name 03/10/2021 1 [facility] - DOS PRIOR TO 2021 (MEDICAID REPLACEMENT - HMO) Xochitl Diaz [id number] Xochitl Diaz Notes Date Note Type Note Provider Name and Address Organization Details Recorded Time 03/10/2021 text/html Annual GYNReport ed bypatient.Urinary symptoms:No hematuria; No incontinence Vulva:No genital lesion Vagina:Normal vaginal discharge Breast:No breast pain; No breast lump; No nipple discharge Current Contraception:Cond oms Sexual complaints:No sexual complaints; No pain during intercourse; Normal libido Menopausal Symptoms:No menopausal symptoms; Normal vaginal lubrication Psychological symptoms:No depression; No anxiety Preventive measures:Encourage self breast examination; Encourage regular exercise Chuck Lopez MD [address], [place], [address], [facility] 03/10/2021 12:04:33 OBGyn Episode Ob Episode Information Episode Created Date Number of Fetuses Patient Bloodtype Patient rh Status Prepregnancy Weight lbs Domestic Partner Domestic Partner Phone Father Name Support Services Rep Status 03/10/20 21 1 CLOSED Fetus Data First Name Last Name Admitted to NICU Weight (g) Sex Living Outcome Pediatric Complications Fetus ID Race Codes Race Delivery Type 3345.24 1 F [id number] Vaginal Delivery Cody Calculation Initial Cody Date Initial Exam Date Initial Exam Provider Initial Ultrasound Date Last Menstrual Period Date Ultra Sound Weeks Gestation 0 Eighteen To Twenty Week Cody Update Ultra Sound Date Fundal Height At Umbil Quickening Date Ultra Sound Latest Weeks Gestation Final Cody Confirmed By Final Cody Confirmed Date Final Cody Date Ultra Sound Latest Days Gestation 0 0 Menstrual History Last Menstrual Date Menses Monthly On Bcp Conception Prior Menses Frequency Hcg Plus Date Menarche Onset Age Delivery Information Delivery Date Delivery Type Labor Anesthesia Weeks Gestation Incision Type Labor Labor Length Hrs Delivered By Post Complications Tubal Sterilization Discharge Date Comments 8 38.2 Aria GHTN, choroid plexus cyst resolved Discharge Information Feeding Method Contraceptive Method Maternal HG B and HCT Levels Ob Episode Information Episode Created Date Number of Fetuses Patient Bloodtype Patient rh Status Prepregnancy Weight lbs Domestic Partner Domestic Partner Phone Father Name Support Services Rep Status 03/10/20 21 1 CLOSED Fetus Data First Name Last Name Admitted to NICU Weight (g) Sex Living Outcome Pediatric Complications Fetus ID Race Codes Race Delivery Type 2494.75 6 F Full Term [id number] Vaginal Delivery Cody Calculation Initial Cody Date Initial Exam Date Initial Exam Provider Initial Ultrasound Date Last Menstrual Period Date Ultra Sound Weeks Gestation 0 Eighteen To Twenty Week Cody Update Ultra Sound Date Fundal Height At Umbil Quickening Date Ultra Sound Latest Weeks Gestation Final Cody Confirmed By Final Cody Confirmed Date Final Cody Date Ultra Sound Latest Days Gestation 0 0 Menstrual History Last Menstrual Date Menses Monthly On Bcp Conception Prior Menses Frequency Hcg Plus Date Menarche Onset Age Delivery Information Delivery Date Delivery Type Labor Anesthesia Weeks Gestation Incision Type Labor Labor Length Hrs Delivered By Post Complications Tubal Sterilization Discharge Date Comments 6 37 Rashmi Discharge Information Feeding Method Contraceptive Method Maternal HG B and HCT Levels
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
--- OUTSIDE RECORDS SUMMARY | 2024-12-16 15:28 | XMS_ITS | Patient Health Record ---
Author Organization [facility] Address [address] [place] [address] Care Team Providers Care Statistics Professor Name Role Phone Vipin Ponce Primary Care Provider Gisela Dolan Unavailable [phone] Allergies No Known Allergies Results Component Value Reference Range Notes 12 Panel Urine Drug Screen Reviewed date:02/06/2024 12:06:57 PM Interpretation: Performing Lab: Notes/Report: THC pos SULLY neg MOP (OPI) neg AMP neg MET neg BAR neg BZO neg MDMA neg MTD neg OXY neg PCP neg BUP neg Reason For Referral Reason therapy Diagnosis 1 Binge eating (R63.2) Diagnosis 2 Attention and concen tration deficit (R41.840) Referral Organization [facility] Referring Provider First Name Gisela Referring Provider Last Name Kelsi Referring Provider Speciality Psychiatry Referred Provider Specialty Psychiatry Clinical Notes Priscila Perez 04:07:53 PM >SVETLANA PW contacted [facility] regarding referral. Consumer stated now was not a good time to talk and requested if she could call back in 10 minutes to discuss referral. HN agreed., Priscila Perez 02/06/2024 04:19:51 PM >SVETLANA PW received call back from [facility]. Consumer is in agreement with therapy referral. SVETLANA explained the therapy process and provided the [facility] contact information with instructions. Consumer voiced understanding and had no additional questions at this time. Case addressed and closed. Referral Priority Routine Medications Medication SIG (Take, Route, Frequency, Duration) Notes Start Date End Date Status Phentermine HCl 30 MG 1 capsule Orally O nce a day Not-Taking Propranolol HCl 10 MG 1 tablet Orally twice a day for 30 days As needed for anxiety or panic attacks 10/09/2024 Active Vyvanse 40 MG 1 capsule in the mor sebastián Orally Once a day for 30 days 08/11/2024 Active Vyvanse 40 MG 1 capsule in the mor sebastián Orally Once a day. Please fill on or after October 28, 2024. for 30 days 10/09/2024 Active Vyvanse 40 MG 1 capsule in [...] W/U Status Risk Notes Problem Tobacco user (965746257) Nicotine dependence, unspecified, uncomplicated (F17.200) Active confirmed Problem Attention deficit hyperactivity disorder, predominantly inattentive type (disorder) (26213470) Attention and concentration deficit (R41.840) Active confirmed Problem Binge eating (1631931821) Binge eating (R63.2) Active confirmed Problem Panic disorder (592473323) Panic attacks (F41.0) Active confirmed Vital Signs Heart Rate 85 /min 02/06/2024 Respiratory Rate 16 /min 02/06/2024 Blood pressure diastolic 84 mm Hg 02/06/2024 Oximetry 98 % 02/06/2024 Height 64 in 02/06/2024 Blood pressure systolic 126 mm Hg 02/06/2024 Weight 243.4 lbs 02/06/2024 BMI 41.77 kg/m2 02/06/2024 Encounters Encounter Location Date Provider Diagnosis [address] [place] [address] 02/06/2024 Gisela Dolan [address] [place] [address] 03/05/2024 Gisela Dolan Binge eating R63.[address] [place] [address] 04/25/2024 Gisela Dolan Binge eating R63.[address] [address] 05/23/2024 Gisela Kelsi Binge eating R63.[address] [address] 05/26/2024 Gisela Kelsi [address] [address] 05/26/2024 Gisela Kelsi Binge eating R63.[address] [address] 07/29/2024 Vipin Ponce Binge eating R63.[address] [address] 09/30/2024 Vipin Ponce [address] [address] 02/06/2024 Gisela Kelsi Attention and concentration deficit R41.840 and Binge eating R63.[address] [place] [address] 02/29/2024 Gisela Kelsi Binge eating R63.2 and Attention and concentration deficit R41.[address] [place] [address] 04/25/2024 Gisela Kelsi Attention and concentration deficit R41.840 and Binge eating R63.[address] [address] 08/11/2024 Vipin Ponce Nicotine dependence, unspecified, uncomplicated F17.200 ; Binge eating R63.2 and Attention and concentration deficit R41.[address] [place] [address] 10/07/2024 Vipin Ponce Binge eating R63.2 ; Attention and concentration deficit R41.840 and Panic attacks F41.0 Assessments Encounter Date Diagnosis (ICD Code) Assessment Notes Treatment Notes Treatment Clinical Notes Section Notes 02/29/2024 Binge eating (ICD-10 - R63.2) ilpmp reviewed. Will increase Vyvanse to 40mg to aid binge eating as well as concentration issues. Will order routine labs at next visit. Pt denies hx of cardiac issues 03/05/2024 Binge eating (ICD-10 - R63.2) 07/29/2024 Binge eating (ICD-10 - R63.2) 08/11/2024 Nicotine dependence, unspecified, uncomplicated (ICD-10 - [...] number to the 24-hour crisis line at [facility]. Questions addressed. Client verbalized understanding of all information and is agreeable to treatment plan. Client doing well overall, no treatment plan changes needed. 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 Discussed adding propranolol prn for anxiety as client declines trial of SSRI or SNRI for anxiety. Discussed f/u appt in office, agreeable to plan changes. 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 Discussed adding propranolol prn for anxiety as client declines trial of SSRI or SNRI for anxiety. Discussed f/u appt in office, agreeable to plan changes. 05/26/2024 Binge eating (ICD-10 - R63.2) 05/23/2024 Binge eating (ICD-10 - R63.2) 04/25/2024 Binge eating (ICD-10 - R63.2) 04/25/2024 Attention and concentration deficit (ICD-10 - R41.840) Adult ADHD screen was (+) at previous visit. Concern for likely ADD; will continue to monitor symptoms. Pt has family Hx of ADD/ADHD. Will refill Vyvanse today to aid binge-eating as well as concentration issues. DD: Mood disorder, depression, anxiety, PTSD 02/06/2024 Attention and concentration deficit (ICD-10 - R41.840) Adult ADHD screen is (+) today. Concern for likely ADD; will continue to monitor symptoms. Pt has family Hx of ADD/ADHD. Will start Vyvanse today to aid binge-eating as well as concentration issues. DD: Mood disorder, depression, anxiety, PTSD 02/06/2024 Binge eating (ICD-10 - R63.2) ilpmp reviewed. Will start Vyvanse to aid binge eating as well as concentration issues. Instructed pt not to take Phentermine since she will be starting Vyvanse. UDS obtained today. Will order routine labs at next visit. Pt denies hx of cardiac issues 02/29/2024 Attention and concentration deficit (ICD-10 - R41.840) Adult ADHD screen is (+) at previous visit. Concern for likely ADD; will continue to monitor symptoms. Pt has family Hx of ADD/ADHD. Will increase Vyvanse today to aid binge-eating as well as concentration issues. DD: Mood disorder, depression, anxiety, PTSD 04/25/2024 Binge eating (ICD-10 - R63.2) ilpmp reviewed. Will refill Vyvanse to 40mg to aid binge eating as well as concentration issues. Will order routine labs at next visit. Pt denies hx of cardiac issues 10/07/2024 Panic attacks (ICD-10 - F41.0) Client with many stressors including end of usp relationship, having panic attacks. 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 Discussed adding propranolol prn for anxiety as client declines trial of SSRI or SNRI for anxiety. Discussed f/u appt in office, agreeable to plan changes. 08/11/2024 Attention and concentration deficit (ICD-10 - R41.840) Client doing well overall, no treatment plan changes needed. 02/06/2024 Other Discussed sleep hygiene and caffeine intakeDiscussed medication efficacy and purpose Also discussed medication interactions, risks, benefits and side effects. No additional questions concerning medications at this time.Discussed treatment planReturn to clinic 4 weeksObtain lab work at next visit Encouraged counseling; referral placed Discussed treatment plan; patient is agreeable and accepting of treatment plan. Patient denies further questions or concerns at this time. Reasons, potential benefits, interactions and side effects of all medications were discussed.The Patient/Guardian asked appropriate questions, appeared to understand the answers, and decided to accept the treatment and continue being followed.The Patient/Guardian is aware of the need to contact the office or return for an earlier appointment if any problems or concerns arise. May also contact the 24-hour crisis hotline ([facility]), refer to the closest emergency room or call 911 if new symptoms arise of existing symptoms worsen; the Patient/Guardian is aware that this would apply to symptoms such as: suicidal ideation, homicidal ideation, high risk behaviors, manic symptoms, psychotic symptoms, physical symptoms, or any other symptoms that may be dangerous to self or others. 02/29/2024 Other Discussed treat ment planDiscussed sleep hygiene and caffeine intakeReturn to clinic 4 weeksEncouraged counselingDiscussed treatment plan; patient is agreeable and accepting of treatment plan. Patient denies further questions or concerns at this time. The Patient/Guardian asked appropriate questions, appeared to understand the answers, and decided to accept the treatment and continue being followed.The Patient/Guardian is aware of the need to contact the office or return for an earlier appointment if any problems or concerns arise. May also contact the 24-hour crisis hotline ([facility]), refer to the closest emergency room or call 911 if new symptoms arise of existing symptoms worsen; the Patient/Guardian is aware that this would apply to symptoms such as: suicidal ideation, homicidal ideation, high risk behaviors, manic symptoms, psychotic symptoms, physical symptoms, or any other symptoms that may be dangerous to self or others. 04/25/2024 Other Discussed treat ment planDiscussed sleep hygiene and caffeine intakeReturn to clinic 8 weeksEncouraged counselingDiscussed treatment plan; patient is agreeable and accepting of treatment plan. Patient denies further questions or concerns at this time. The Patient/Guardian asked appropriate questions, appeared to understand the answers, and decided to accept the treatment and continue being followed.The Patient/Guardian is aware of the need to contact the office or return for an earlier appointment if any problems or concerns arise. May also contact the 24-hour crisis hotline ([facility]), refer to the closest emergency room or call 911 if new symptoms arise of existing symptoms worsen; the Patient/Guardian is aware that this would apply to symptoms such as: suicidal ideation, homicidal ideation, high risk behaviors, manic symptoms, psychotic symptoms, physical symptoms, or any other symptoms that may be dangerous to self or others. 08/11/2024 [place] [...] number to the 24-hour crisis line at [facility]. Questions addressed. Client verbalized understanding of all information and is agreeable to treatment plan. Client doing well overall, no treatment plan changes needed. 10/07/2024 [place] [...] number to the 24-hour crisis line at [facility]. Questions addressed. Client verbalized understanding of all information and is agreeable to treatment plan. 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 Discussed adding propranolol prn for anxiety as client declines trial of SSRI or SNRI for anxiety. Discussed f/u appt in office, agreeable to plan changes. Plan Of Treatment No Information Insurance Providers Payer Name Payer Address Payer Phone Subscriber Number Group Number Insured Name Patient Relationship to Insured Coverage Start Date Coverage End Date [employer] [facility] [address] [place] [id number] Xochitl Diaz Self - patient is the insured 4 [employer] [facility] [address] [place] [phone] [id number] Xochitl Diaz Self - patient is the insured 4
--- OUTSIDE RECORDS SUMMARY | 2024-12-16 15:29 | XMS_ITS ---
Author Organization [facility] Address [address] [place] [address] Care Team Providers Care Attendant Coin Operated Laundry Name Role Phone Vipin Ponce Primary Care Provider REASON FOR VISIT medication concern Social History Sex Assigned At : Social History Observation Description Sex Assigned At Female Encounters Encounter Location Date Provider Diagnosis [address], [place] [address] 09/30/2024 Vipin Ponce Plan Of Treatment No Information Progress Notes * Xochitl DIAZDOB:[birth year] (29 yo F)Acc No.[id number]:09/30/2024 Patient: Xochitl MAHER :1995 A ge:29 Y S ex:Female Address:[address] [place] [address], [address] * true * Date: Generated for Printi ng/Faxing/eTransmitting on: 0 12/16/2024 03:28 PM CDT
--- OUTSIDE RECORDS SUMMARY | 2024-12-16 15:29 | XMS_ITS | Patient Health Summary ---
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 This disclosure is being madepursuant to the Care Everywhere program and may not contain all information available regarding this patient. Last updated 18.[facility] [place] Social History Tobacco Use Types Packs/Day Years Used Date Smoking Tobacco: Never Assessed Sex and Gender Information Value Date Recorded Sex Assigned at Not on file Gender Identity Not on file Sexual Orientation Not on file Last Filed Vital Signs Vital Sign Reading Time Taken Comments Blood Pressure 124/85 03/23/2014 11:03 AM CDT Pulse 82 03/23/2014 11:03 AM CDT Temperature 37 C (98.6 F) 03/23/2014 11:03 AM CDT Respiratory Rate 18 02/01/2013 2:00 PM CDT Oxygen Saturation 98% 02/01/2013 2:00 PM CDT Inhaled Oxygen Concentration - - Weight 85.7 kg (189 lb) 03/27/2013 11:44 AM CDT Height 162.6 cm (5' 4 ) 03/05/2013 3:28 PM CDT Body Mass Index 32.44 03/05/2013 3:28 PM CDT Procedures * BASIC METABOLIC PANEL (CALCIUM TOTAL)(Performed 04/14/2014) * CT UROGRAM(Performed 04/14/2014) * CREATININE BLOOD - POCT (IP) [facility](Performed 04/14/2014) * URINALYSIS AUTO - POINT OF CARE (AMB) [facility](Performed 03/23/2014) * CBC W AUTO DIFFERENTIAL(Performed 03/05/2013) * CT UROGRAM(Performed 03/05/2013) * EKG 12-LEAD(Performed 02/17/2013) * URINALYSIS W/MICROSCOPIC NO CULTURE(Performed 02/13/2013) * CK BLOOD(Performed 02/13/2013) * COMPREHENSIVE METABOLIC PANEL(Performed 02/13/2013) * CBC W AUTO DIFFERENTIAL(Performed 02/13/2013) * HCG URINE QUALITATIVE(Performed 02/13/2013) * XR ABDOMEN 2VW(Performed 02/06/2013) * XR CHEST 2VW(Performed 02/06/2013) * CBC W AUTO DIFFERENTIAL(Performed 02/06/2013) * URINALYSIS W/MICROSCOPIC NO CULTURE(Performed 02/06/2013) * HCG URINE QUALITATIVE(Performed 02/06/2013) * COMPREHENSIVE METABOLIC PANEL(Performed 02/06/2013) * CK BLOOD(Performed 02/06/2013) * BASIC METABOLIC PANEL (CALCIUM TOTAL)(Performed 02/01/2013) * PHOSPHORUS BLOOD(Performed 02/01/2013) * MAGNESIUM BLOOD(Performed 02/01/2013) * CBC W/O DIFFERENTIAL(Performed 02/01/2013) * CBC W/O DIFFERENTIAL(Performed 01/31/2013) * PHOSPHORUS BLOOD(Performed 01/31/2013) * MAGNESIUM BLOOD(Performed 01/31/2013) * BASIC METABOLIC PANEL (CALCIUM TOTAL)(Performed 01/31/2013) * FL CYSTOGRAM(Performed 01/31/2013) * MAGNESIUM BLOOD(Performed 01/30/2013) * PHOSPHORUS BLOOD(Performed 01/30/2013) * BASIC METABOLIC PANEL (CALCIUM TOTAL)(Performed 01/30/2013) * CBC W/O DIFFERENTIAL(Performed 01/30/2013) * CT ABDOMEN PELVIS W CONTRAST(Performed 01/29/2013) * MAGNESIUM BLOOD(Performed 01/29/2013) * PHOSPHORUS BLOOD(Performed 01/29/2013) * BASIC METABOLIC PANEL (CALCIUM TOTAL)(Performed 01/29/2013) * CBC W/O DIFFERENTIAL(Performed 01/29/2013) * VAS BILATERAL VENOUS DUPLEX LE(Performed 01/28/2013) * MAGNESIUM BLOOD(Performed 01/28/2013) * PHOSPHORUS BLOOD(Performed 01/28/2013) * BASIC METABOLIC PANEL (CALCIUM TOTAL)(Performed 01/28/2013) * CBC W/O DIFFERENTIAL(Performed 01/28/2013) * XR CHEST 1VW PORTABLE(Performed 01/28/2013) * CBC W AUTO DIFFERENTIAL(Performed 01/27/2013) * LIPASE BLOOD(Performed 01/27/2013) * AMYLASE BLOOD(Performed 01/27/2013) * COMPREHENSIVE METABOLIC PANEL(Performed 01/27/2013) * CBC W/O DIFFERENTIAL(Performed 01/27/2013) * PREALBUMIN(Performed 01/27/2013) * LIPASE BLOOD(Performed 01/27/2013) * AMYLASE BLOOD(Performed 01/27/2013) * PHOSPHORUS BLOOD(Performed 01/27/2013) * MAGNESIUM BLOOD(Performed 01/27/2013) * COMPREHENSIVE METABOLIC PANEL(Performed 01/27/2013) * PT-INR [facility](Performed 01/27/2013) * PTT [facility](Performed 01/27/2013) * CBC W AUTO DIFFERENTIAL(Performed 01/27/2013) * CBC W/O DIFFERENTIAL(Performed 01/27/2013) * BLOOD GASES ARTERIAL(Performed 01/27/2013) * XR CHEST 1VW PORTABLE(Performed 01/26/2013) * LIPASE BLOOD(Performed 01/26/2013) * AMYLASE BLOOD(Performed 01/26/2013) * COMPREHENSIVE METABOLIC PANEL(Performed 01/26/2013) * URINALYSIS W/MICROSCOPIC NO CULTURE(Performed 01/26/2013) * CBC W/O DIFFERENTIAL(Performed 01/26/2013) * CULTURE URINE(Performed 01/26/2013) * PATHOLOGY INTERPRETATION(Performed 01/26/2013) * TEG PLATELET MAPPING(Performed 01/26/2013) * CULTURE BLOOD(Performed 01/26/2013) * CBC W AUTO DIFFERENTIAL(Performed 01/26/2013) * COMPREHENSIVE METABOLIC PANEL(Performed 01/26/2013) * LIPASE BLOOD(Performed 01/26/2013) * AMYLASE BLOOD(Performed 01/26/2013) * PHOSPHORUS BLOOD(Performed 01/26/2013) * MAGNESIUM BLOOD(Performed 01/26/2013) * PT-INR [facility](Performed 01/26/2013) * PTT [facility](Performed 01/26/2013) * CBC W/O DIFFERENTIAL(Performed 01/26/2013) * CULTURE BLOOD(Performed 01/25/2013) * XR CHEST 1VW PORTABLE(Performed 01/25/2013) * URINALYSIS W/MICROSCOPIC NO CULTURE(Performed 01/25/2013) * CBC W/O DIFFERENTIAL(Performed 01/25/2013) * COMPREHENSIVE METABOLIC PANEL(Performed 01/25/2013) * LIPASE BLOOD(Performed 01/25/2013) * AMYLASE BLOOD(Performed 01/25/2013) * COMPREHENSIVE METABOLIC PANEL(Performed 01/25/2013) * LIPASE BLOOD(Performed 01/25/2013) * AMYLASE BLOOD(Performed 01/25/2013) * CBC W/O DIFFERENTIAL(Performed 01/25/2013) * XR CHEST 1VW PORTABLE(Performed 01/25/2013) * COMPREHENSIVE METABOLIC PANEL(Performed 01/25/2013) * LIPASE BLOOD(Performed 01/25/2013) * AMYLASE BLOOD(Performed 01/25/2013) * CBC W AUTO DIFFERENTIAL(Performed 01/25/2013) * CBC W/O DIFFERENTIAL(Performed 01/25/2013) * PT-INR [facility](Performed 01/25/2013) * PTT [facility](Performed 01/25/2013) * COMPREHENSIVE METABOLIC PANEL(Performed 01/24/2013) * LIPASE BLOOD(Performed 01/24/2013) * AMYLASE BLOOD(Performed 01/24/2013) * CBC W/O DIFFERENTIAL(Performed 01/24/2013) * TEG PLATELET MAPPING(Performed 01/24/2013) * CBC W/O DIFFERENTIAL(Performed 01/24/2013) * COMPREHENSIVE METABOLIC PANEL(Performed 01/24/2013) * LIPASE BLOOD(Performed 01/24/2013) * AMYLASE BLOOD(Performed 01/24/2013) * PREPARE PLATELET PHERESIS UNIT(S)(Performed 01/24/2013) * BLOOD GASES ARTERIAL(Performed 01/24/2013) * BASIC METABOLIC PANEL (CALCIUM TOTAL)(Performed 01/24/2013) * CBC W/O DIFFERENTIAL(Performed 01/24/2013) * TEG PLATELET MAPPING(Performed 01/24/2013) * HCG URINE QUALITATIVE - POCT (IP) [facility](Performed 01/24/2013) * URINALYSIS REFLEX TO MICROSCOPIC NO CULTURE(Performed 01/24/2013) * URINALYSIS REFLEX TO MICROSCOPIC NO CULTURE(Performed 01/24/2013) * DRUG ABUSE PANEL 10-20+ETHANOL URINE NO CONFIRM(Performed 01/24/2013) * XR KNEE LEFT 3VW(Performed 01/24/2013) * XR KNEE RIGHT 3VW(Performed 01/24/2013) * CT THORACIC SPINE WO CONTRAST(Performed 01/24/2013) * CT LUMBAR SPINE WO CONTRAST(Performed 01/24/2013) * CT CERVICAL SPINE WO CONTRAST(Performed 01/24/2013) * CT CHEST ABDOMEN PELVIS W CONT(Performed 01/24/2013) * CT FACIAL BONES WO CONTRAST(Performed 01/24/2013) * CT HEAD WO CONTRAST(Performed 01/24/2013) * XR CHEST 1VW PORTABLE(Performed 01/24/2013) * CROSSMATCH RBC LEUKOREDUCED(Performed 01/24/2013) * TYPE + SCREEN PANEL(Performed 01/24/2013) * CROSSMATCH RBC LEUKOREDUCED(Performed 01/24/2013) * TYPE + SCREEN PANEL(Performed 01/24/2013) * CBC W AUTO DIFFERENTIAL(Performed 01/24/2013) * ALCOHOL ETHYL BLOOD(Performed 01/24/2013) * BASIC METABOLIC PANEL (CALCIUM TOTAL)(Performed 01/24/2013) * PT-INR [facility](Performed 01/24/2013) * PTT [facility](Performed 01/24/2013) * URINALYSIS - POINT OF CARE (AMB) [facility](Performed 10/08/1998) Results * (ABNORMAL) BASIC METABOLIC PANEL (CALCIUM TOTAL) (04/14/2014 9:28 AM CDT) Only the most recent of8 resultswithin the time period is included. BUN 11 7 - 26 mg/dL [facility] Anion Gap 12 8 - 18 [facility] BUN/Creatinine Ratio 14 7 - 23 [facility] Osmolality Calculated 263(L) 270 - 300 mOsm/kg [facility] Creatinine 0.8 0.6 - 1.2 mg/dL [facility] Sodium 134(L) 136 - 145 mmol/L [facility] Potassium 4.4 3.5 - 4.5 mmol/L [facility] Chloride 105 98 - 107 mmol/L [facility] CO2 21(L) 22 - 29 mmol/L [facility] Glucose 91 70 - 115 mg/dL [facility] Calcium 9.4 8.4 - 10.2 mg/dL [facility] eGFR >60 >60 mL/min/1.7 3 m2 [facility] Blood specimen (specimen) BLOOD SPECIMEN / Unknown 04/14/2014 9:28 AM CDT 04/14/2014 9:46 AM CDT Kyle Davis MD LAB - CHEMISTRY ORD ERABLES [address] [phone] * CT UROGRAM (04/14/2014 9:17 AM CDT) Only the most recent of2 resultswithin the time period is included. Anatomical Region Laterality Modality Abdomen, Pelvis Other Impressions 04/14/2014 12:42 PM CDT IMPRESSION: 1. Nearly resolved left retroperitoneal hematoma. 2. The left kidney is now smaller and deformed from the previous trauma. The remaining left renal parenchyma in the mid kidney enhances normally. 3. There is a dilated calyx in the left upper pole and dilated calyx in the left lower pole, and the associated upper and lower renal cortex demonstrates slightly diminished enhancement. This may be from decreased perfusion or obstruction of the calyces related to the prior trauma. 4. Left renal arteries are poorly demonstrated beyond 1.5 cm from the origin of the left renal artery. This may be related to damage to the vessels from recent trauma. The patient may be at risk from renal hypertension. This report was approved by Michele Camilo M.D. on 04/14/2014 11:15 AM . I, Dr. VIOLETTA MCPHERSON M.D. have personally reviewed and interpreted this examination/study. This report was electronically signed by VIOLETTA MCPHERSON M.D. on 04/14/2014 12:42 PM . Narrative 04/14/2014 12:42 PM CDT EXAMINATION: Computed tomography of the abdomen and pelvis without and with contrast HISTORY: kidney trauma TECHNIQUE: Computed tomography of the abdomen and pelvis was performed before and after the uneventful administration of 100 mL Omnipaque 350 intravenous contrast according to urographic protocol including nephrographic and delayed phases. COMPARISON: 03/05/2013, 01/29/2013, 01/24/2013 FINDINGS: The lung bases are clear. The heart size is normal. The left retroperitoneal hematoma/urinoma has resolved since the previous exam. Left kidney is deformed and smaller than on the previous examination. There is a mildly dilated calyx in the left upper pole and a mildly dilated calyx in the left lower renal pole which partially filled with contrast. The parenchyma adjacent to the mildly dilated calyces enhances slightly less than the mid renal parenchyma which enhances normally. The left ureter enhances normally. The left renal arteries are poorly demonstrated beyond 1.5 cm from the origin of the left renal artery. The right kidney is normal. The liver and gallbladder appear normal without biliary ductal dilatation. The spleen, pancreas, and adrenal glands appear normal. The small and large bowel are normal in caliber without obstruction. The appendix is normal. No free intraperitoneal air or free fluid is identified. No lymphadenopathy is seen. The abdominal aorta is normal in course and caliber. The urinary bladder is normal. The uterus and adnexa are normal. Physiologic cysts in the ovaries, have decreased on the left measuring 7 mm, and have increased on the right measuring 1.5 cm. Osseous: No acute osseous abnormalities are seen. Procedure Note Violetta Mcpherson MD - 01/05/2018 EXAMINATION: Computed tomography of the abdomen and pelvis without andwith contrast HISTORY: kidney trauma TECHNIQUE: Computed tomography of the abdomen and pelvis was performedbefore and after the uneventful administration of 100 mL Omnipaque 350intravenous contrast according to urographic protocol includingnephrographic and delayed phases. COMPARISON: 03/05/2013, 01/29/2013, 01/24/2013 FINDINGS: The lung bases are clear. The heart size is normal. The left retroperitoneal hematoma/urinoma has resolved since the previousexam. Left kidney is deformed and smaller than on the previousexamination. There is a mildly dilated calyx in the left upper pole and amildly dilated calyx in the left lower renal pole which partially filled with contrast. The parenchyma adjacentto the mildly dilated calyces enhances slightly less than the mid renalparenchyma which enhances normally. The left ureter enhances normally. Theleft renal arteries are poorly demonstrated beyond 1.5 cm from the origin of the left renal artery. The right kidney is normal. The liver and gallbladder appear normal without biliary ductal dilatation.The spleen, pancreas, and adrenal glands appear normal. The small and large bowel are normal in caliber without obstruction. Theappendix is normal. No free intraperitoneal air or free fluid isidentified. No lymphadenopathy is seen. The abdominal aorta is normal incourse and caliber. The urinary bladder is normal. The uterus and adnexa are normal. Physiologic cysts in theovaries, have decreased on the left measuring 7 mm, and have increased onthe right measuring 1.5 cm. Osseous: No acute osseous abnormalities are seen. IMPRESSION IMPRESSION: 1. Nearly resolved left retroperitoneal hematoma. 2. The left kidney is now smaller and deformed from the previous trauma.The remaining left renal parenchyma in the mid kidney enhances normally. 3. There is a dilated calyx in the left upper pole and dilated calyx inthe left lower pole, and the associated upper and lower renal cortexdemonstrates slightly diminished enhancement. This may be from decreasedperfusion or obstruction of the calyces related to the prior trauma. 4. Left renal arteries are poorly demonstrated beyond 1.5 cm from theorigin of the left renal artery. This may be related to damage to thevessels from recent trauma. The patient may be at risk from renalhypertension. This report was approved by Michele Camilo M.D. on 04/14/2014 11:15 AM. I, Dr. VIOLETTA MCPHERSON M.D. have personally reviewed and interpretedthis examination/study. This report was electronically signed by VIOLETTA MCPHERSON M.D. on04/14/2014 12:42 PM . Kyle Davis MD CT ORDERABLES * CREATININE BLOOD - POCT (IP) [facility] (04/14/2014) Creatinine POCT 1.00 0.3 - 1.3 mg/dL [facility] eGFR POCT 60 60 ml/min [facility] 04/14/2014 Kyle Davis MD LAB - POINT OF CARE ORDERABLES [facility] * URINALYSIS AUTO - POINT OF CARE (AMB) [facility] (03/23/2014) Glucose UA neg [facility] Bilirubin UA POCT neg [facility] Ketones UA POCT neg [facility] Specific [place] UA 1.030 [facility] Blood Urine POCT neg [facility] pH UA 6.0 [facility] Protein UA neg [facility] Urobilinogen UA 3.5 [facility] Nitrite UA neg [facility] WBC UA neg [facility] Urine specimen (specimen) 03/23/2014 Kyle Davis MD LAB - POINT OF CARE ORDERABLES [facility] * (ABNORMAL) CBC W AUTO DIFFERENTIAL (03/05/2013 2:52 PM CDT) Only the most recent of8 resultswithin the time period is included. WBC 6.9 3.5 - 10.5 10^3/uL [facility] RBC 3.82(L) 3.90 - 5.00 10^6/uL [facility] Hemoglobin 10.3(L) 12.0 - 15.5 g/dL [facility] Hematocrit 31.5(L) 35.0 - 45.0 % [facility] MCV 82.5 81.0 - 97.0 FL [facility] MCH 27.0(L) 28.0 - 34.0 PG [facility] MCHC 32.7 32.0 - 36.0 G/DL [facility] Platelet 346 150 - 400 10^3/uL [facility] RDW 13.9 11.2 - 14.8 % [facility] RDW-SD 42.3 36 - 50 FL [facility] MPV 9.6 9.3 - 12.8 FL [facility] Neutrophils % 47.8 35.0 - 70.0 % [facility] Lymphocytes % 40.5 19.7 - 55.1 % [facility] Monocytes % 9.0 3 - 15 % [facility] Eosinophils % 2.0 0.0 - 6.0 % [facility] Basophils % 0.7 0.0 - 1.5 % [facility] Neutrophils Absolute 3.3 1.7 - 7.0 10^3/uL [facility] Lymphocyte Absolute 2.8 0.8 - 2.9 10^3/uL [facility] Monocytes Absolute 0.6 0.14 - 0.66 10^3/uL [facility] Eosinophils Absolute 0.14 0.00 - 0.22 10^3/uL [facility] Basophils Absolute 0.05 0.02 - 0.06 10^3/uL [facility] Differential Type AUTO DIFFERENTIAL [facility] 03/05/2013 2:52 PM CDT 03/05/2013 3:32 PM CDT Sarah Martini MD LAB - HEMATOLOGY ORD ERABLES [facility] [address] [place] [address] * EKG 12-LEAD (02/17/2013 9:59 AM CDT) Paul Johns MD ECG ORDERABLES Performing Organization Address City/[facility]/ZIP Co de Phone Number [facility] RADIOLOGY * (ABNORMAL) URINALYSIS W/MICROSCOPIC NO CULTURE (02/13/2013 11:55 AM CDT) Only the most recent of4 resultswithin the time period is included. Color UA RED(A) STRW,YELLOW [facility] Clarity UA CLOUDY(A) CLEAR [facility] Specific [place] Urine > 1.040(H) 1.001 - 1.030 [facility] Comment:Results confirmed by refractometer. pH UA 6.0 5.0 - 8.0 [facility] Protein UA 300(A) <20 mg/dL [facility] Glucose UA NEGATIVE NEGATIVE mg/dL [facility] Ketones 15(A) NEGATIVE mg/dL [facility] Bilirubin UA 1.0(A) NEGATIVE mg/dL [facility] Comment:BILIRUBIN NOT CONFIR MED due to unavailable Ictotest test. Bilirubin Comment COMMENT [facility] Blood UA LARGE(A) NEGATIVE [facility] Nitrite UA POSITIVE(A) NEGATIVE [facility] Leukocyte Esterase LARGE(A) NEGATIVE [facility] Urobilinogen UA 3.0(H) <2.0 mg/dL [facility] RBC Urine 216(H) 0 - 8 /HPF [facility] WBC Urine 1920(H) 0 - 2 /HPF [facility] WBC Clumps MANY(A) NONE SEEN /HPF [facility] Bacteria Urine MANY(A) <OCCASIONAL /HPF [facility] Squamous Epithelial Cells UA 2(H) 0 - 1 /HPF [facility] Mucus Urine MANY(A) NONE SEEN /LPF [facility] Urine specimen (specimen) URINE SPECIMEN OBTAINED BY CLEAN CATCH PROCEDURE / Unknown 02/13/2013 11:55 AM CDT 02/13/2013 2:34 PM CDT Alan Cotter MD LAB - URINALYSIS ORDERABLES Performing Organization Address City/[facility]/ZIP Co de Phone Number [address] [phone] * HCG URINE QUALITATIVE (02/13/2013 11:55 AM CDT) Only the most recent of2 resultswithin the time period is included. Test Urine NEGATIVE NEGATIVE [facility] Urine specimen (specimen) URINE SPECIMEN OBTAINED BY CLEAN CATCH PROCEDURE / Unknown 02/13/2013 11:55 AM CDT 02/13/2013 2:34 PM CDT Alan Cotter MD LAB - URINALYSIS ORDERABLES [address] [phone] * (ABNORMAL) COMPREHENSIVE METABOLIC PANEL (02/13/2013 11:55 AM CDT) Only the most recent of11 resultswithin the time period is included. BUN 14 7 - 26 mg/dL [facility] Creatinine 0.9 0.6 - 1.2 mg/dL [facility] Sodium 140 136 - 145 mmol/L [facility] Potassium 4.4 3.5 - 4.5 mmol/L [facility] Chloride 101 98 - 107 mmol/L [facility] CO2 24 22 - 29 mmol/L [facility] Glucose 83 70 - 115 mg/dL [facility] Calcium 10.9(H) 8.4 - 10.2 mg/dL [facility] Protein Total 8.9(H) 6.0 - 8.3 g/dL [facility] Albumin 3.7 3.4 - 5.0 g/dL [facility] Bilirubin Total 0.5 0.2 - 1.2 mg/dL [facility] Alkaline Phosphatase 91 40 - 150 Units/L [facility] ALT 18 0 - 55 Units/L [facility] AST 18 5 - 34 Units/L [facility] Anion Gap 19(H) 8 - 18 [facility] BUN/Creatinine Ratio 15 7 - 23 [facility] Osmolality Calculation 274 270 - 300 mOsm/kg [facility] Albumin/Globulin Ratio 0.7(L) 1.1 - 2.3 [facility] Serum 02/13/2013 11:5 5 AM CDT 02/13/2013 2:34 PM CDT Alan Cotter MD LAB - CHEMISTRY O RDERABLES Performing Organization Address [facility]/[place] [address], [facility] [phone] * (ABNORMAL) CK BLOOD (02/13/2013 11:55 AM CDT) Only the most recent of2 resultswithin the time period is included. CK Total 22(L) 30 - 200 Units/L [facility] Serum 02/13/2013 11:5 5 AM CDT 02/13/2013 2:34 PM CDT Alan Cotter MD LAB - CHEMISTRY O RDERABLES Performing Organization Address [facility] [place] [address], [facility] [phone] * XR ABDOMEN 2VW (02/06/2013 2:13 PM CDT) Anatomical Region Laterality Modality Other Impressions 02/06/2013 5:36 PM CDT Impression: Nonobstructive bowel gas pattern with small volume stool scattered to the colon and rectum as well as nonspecific air-fluid levels. Reported dictated by Jann Moore MD (vice president compliance). IDr. Kailash M.D. have personally reviewed and interpreted this examination/study. This report was electronically signed by Kailash WINSTON M.D. on 02/06/2013 5:36 PM . Narrative 02/06/2013 5:36 PM CDT Abdomen, 2 views History: Constipation Comparison: None Findings: The abdominal gas pattern is nonobstructive. Small volume stool and air seen throughout the colon and rectum. Scattered air-fluid levels are seen throughout the colon. No pathologic calcification or intraperitoneal free air is identified. The osseous structures are intact. The lung bases are clear. Procedure Note Ana Rosa Winston MD - 01/06/2018 Abdomen, 2 views History: Constipation Comparison: None Findings: The abdominal gas pattern is nonobstructive. Small volume stooland air seen throughout the colon and rectum. Scattered air-fluid levelsare seen throughout the colon. No pathologic calcification orintraperitoneal free air is identified. The osseous structures are intact. The lung bases are clear. IMPRESSION Impression: Nonobstructive bowel gas pattern with small volume stool scattered to thecolon and rectum as well as nonspecific air-fluid levels. Reported dictated by Jann Moore MD (vice president compliance). Dr. Kailash Jenkins M.D. have personally reviewed and interpreted thisexamination/study. This report was electronically signed by Kailash WINSTON M.D. on02/06/2013 5:36 PM . Alan Cotter MD DIAGNOSTIC IMAGIN G ORDERABLES * XR CHEST 2VW (02/06/2013 2:13 PM CDT) Anatomical Region Laterality Modality Chest Other Impressions 02/07/2013 7:20 PM CDT Impression: 1. Interval resolution of left basilar atelectasis and pleural effusion at the left lung base. 2. Left midlung opacity may represent atelectasis or fluid in the fissure. Report dictated by Carole Greco M.D. (vice president compliance). This report was approved by Carole Greco M.D. on 02/07/2013 2:[address] RAJENDRA Jenkins M.D. have personally reviewed and interpreted this examination/study. This report was electronically signed by RAJENDRA MAR M.D. on 02/07/2013 7:20 PM . Narrative 02/07/2013 7:20 PM CDT Exam: XR CHEST PA AND LATERAL Date: 02/06/2013 History: pleural effusion Comparison: Comparison is made with a prior study dated 01/28/2013 Findings: Left midlung opacity may represent atelectasis or fluid in a fissure. Previously seen left basilar atelectasis and pleural effusion at the left lung base have resolved. The right lung is clear. No pneumothorax is identified. The heart size and mediastinal contours are normal. A fracture of the right anterior first rib is unchanged. Procedure Note Rajendra Mar MD - 01/06/2018 Exam: XR CHEST PA AND LATERAL Date: 02/06/2013 History: pleural effusion Comparison: Comparison is made with a prior study dated 01/28/2013 Findings: Left midlung opacity may represent atelectasis or fluid in a fissure.Previously seen left basilar atelectasis and pleural effusion at the leftlung base have resolved. The right lung is clear. No pneumothorax isidentified. The heart size and mediastinal contours are normal. A fracture of the right anterior firstrib is unchanged. IMPRESSION Impression: 1. Interval resolution of left basilar atelectasis and pleural effusion atthe left lung base. 2. Left midlung opacity may represent atelectasis or fluid in thefissure. Report dictated by Carole Greco M.D. (vice president compliance). This report was approved by Carole Greco M.D. on 02/07/2013 2:09 PM . I, Dr. RAJENDRA MAR M.D. have personally reviewed and interpreted thisexamination/study. This report was electronically signed by RAJENDRA MAR M.D. on 02/07/20137:20 PM . Alan Cotter MD DIAGNOSTIC IMAGIN G ORDERABLES * (ABNORMAL) CBC W/O DIFFERENTIAL (02/01/2013 3:00 AM CDT) Only the most recent of15 resultswithin the time period is included. WBC 10.7(H) 3.5 - 10.5 10^3/uL [facility] RBC 2.98(L) 3.90 - 5.00 10^6/uL [facility] Hemoglobin 8.6(L) 12.0 - 15.5 g/dL [facility] Hematocrit 25.4(L) 35.0 - 45.0 % [facility] MCV 85.2 81.0 - 97.0 FL [facility] MCH 28.9 28.0 - 34.0 PG [facility] MCHC 33.9 32.0 - 36.0 G/DL [facility] Platelet 511(H) 150 - 400 10^3/uL [facility] RDW 14.3 11.2 - 14.8 % [facility] RDW-SD 44.8 36 - 50 FL [facility] MPV 9.2(L) 9.3 - 12.8 FL [facility] Venous blood specimen (specimen) 02/01/2013 3:00 AM CDT 02/01/2013 4:03 AM CDT Paul Johns MD LAB - HEMATOLOGY ORD ERABLES [address] [phone] * PHOSPHORUS BLOOD (02/01/2013 3:00 AM CDT) Only the most recent of7 resultswithin the time period is included. Phosphorus 4.2 2.3 - 4.7 mg/dL [facility] Serum 02/01/2013 3:00 AM CDT 02/01/2013 4:03 AM CDT Paul Johns MD LAB - CHEMISTRY ORDE MARYJO [address] [phone] *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 Performing Organization Address [facility] [place] [address], [facility] [phone] * ALCOHOL ETHYL BLOOD (01/24/2013 4:35 AM CDT) Ethanol 12 NONE DETECTED mg/dL [facility] Comment: Ethanol in the patient's blood will contribute to the osmolar gap. Ethanol's contribution to the osmolar gap can be estimated by dividing the concentration of ethanol in mg/dL by 4.6. . Venous blood specimen (specimen) 01/24/2013 4:35 AM CDT 01/24/2013 4:54 AM CDT Paul Johns MD LAB - CHEMISTRY MARIS SIBLEY Performing Organization Address [facility] Co de Phone Number [address] [phone] * (ABNORMAL) URINALYSIS - POINT OF CARE (AMB) [facility] (10/08/1998 12:00 AM NIGHT COORDINATOR) Glucose UA neg [facility] Bilirubin UA POCT neg [facility] Ketones UA POCT neg [facility] Specific [place] UA 1.020 [facility] Blood Urine POCT 200 jackson/ul(A) [facility] pH UA 5.5 [facility] Protein UA 15(A) [facility] Urobilinogen UA 0.2 [facility] Nitrite UA neg [facility] WBC UA neg [facility] Urine specimen (specimen) 10/08/1998 Violetta Rogers MD LAB - POINT OF CARE ORDERABLES [facility]
--- OUTSIDE RECORDS SUMMARY | 2024-12-16 15:29 | XMS_ITS | Clinical Summary ---
Author Organization [facility] Address [address] [place] [address] Care Team Providers Care Patient Service Representative Name Role Phone Unavailable Primary Care Provider Unavailabl e Source Comments [facility],non-owned Affiliates and Associated Physician Practices is amultiple site organization consisting of ambulatory clinics and hospital sitesin [place], [place], [place] and [place]. This disclosure is being madepursuant to the Care Everywhere program and may not contain all information available regarding this patient. Last updated 18.[facility] [employer] Social History Tobacco Use Types Packs/Day Years [...] Mass Index 32.44 03/05/2013 3:28 PM CDT Plan of Treatment Health Maintenance Due Date Last Done Comments PAP SMEAR 1994 HIV SCREENING 2009 HEPATITIS C SCREENING 04/19/2012 DTAP/TDAP/TD VACCINES (1 - Tdap) 2013 HEPATITIS B VACCINE (1 of 3 - 19+ 3-dose series) 2013 COVID-19 VACCINE (2023-2 5 season) 2024 INFLUENZA VACCINE (#1) 2024 DEPRESSION SCREENING 10/08/2024 ZOSTER VACCINE (1 of 2) 2044 HIB VACCINE Aged Out No longer eligi ble based on patient's age to complete this topic HPV VACCINE Aged Out No longer eligi ble based on patient's age to complete this topic MENINGOCOCCAL (Group B) VACCINE Aged Out No longer eligible based on patient's age to complete this topic MENINGOCOCCAL VACCINE Aged Out No alin ananda eligible based on patient's age to complete this topic PNEUMOCOCCAL VACCINE Aged Out No long er eligible based on patient's age to complete this topic
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
--- OUTSIDE RECORDS SUMMARY | 2024-12-16 15:29 | XMS_ITS | Clinical Summary ---
Author Organization [facility] Address [address] [place] [address] Phone Care Team Providers Care Production Scheduler Name Role Phone Unavailable Primary Care Provider Unavailabl e Social History Tobacco Use Types Packs/Day Years Used Date Smoking Tobacco: Never Assessed Comments Unknown Sex and Gender Information Value Date Recorded Sex Assigned at Not on file Legal Sex Female 11:14 PM CDT Gender Identity Not on file Sexual Orientation Not on file Plan of Treatment Health Maintenance Due Date Last Done Comments Hepatitis C Virus (HCV) Screening 1994 TdaP Immunization 1994 Pap Smear 2015 Cervical Cancer Screening (CCS) 2024 HPV/Cotest 2024 Influenza Immunization (#1) 2024 10/13/2017 SARS-COV-2 Immunization ( season) 2024 Respiratory Syncytial Virus (RSV) Immunization (Adult) (1 - 1-dose 75+ series) 2069 Hepatitis B Immunization Completed 995, 1994, 1994 DTaP/Tdap/Td Immunization Discontinued 1995, 07/26/1995, 1994, Additional history exists Meningococcal Immunization (ACWY) Aged Out No longer eligible based on patient's age to complete this topic Pneumococcal Immunization Combined Aged Out No longer eligible based on patient's age to complete this topic Rotavirus Immunization Aged Out No lo nger eligible based on patient's age to complete this topic
--- OUTSIDE RECORDS SUMMARY | 2024-12-16 15:29 | XMS_ITS | Referral Summary ---
Author Organization [facility] Address [address] [place] [address] Care Team Providers Care Vision Impaired Teacher Name Role Phone Unavailable Primary Care Provider Unavailabl e Source Comments [facility],non-owned Affiliates and Associated Physician Practices is amultiple site organization consisting of ambulatory clinics and hospital sitesin [place], [place], [place] and [place]. This disclosure is being madepursuant to the Care Everywhere program and may not contain all information available regarding this patient. Last updated 18.[facility] [email or web address] Social History Tobacco Use Types Packs/Day Years [...] 03/05/2013 3:28 PM CDT Plan of Treatment Not on file
[2024-12-16 15:38] LABS: Basophils Percent Auto 0.8 % (0.2-1.2); Eosinophils Absolute Auto 0.1 K/mm3 (0-0.3); Eosinophils Percent Auto 1.8 % (0-4.4); Hematocrit 42.7 % (37.0-47.0); Hemoglobin 13.8 g/dL (12.0-15.0); Immature Granulocyte Absolute 0.01 K/mm3 (0.00-0.031); Immature Granulocyte Percent A 0.2 % (0-0.5); Lymphocytes Percent Auto 37.4 % (18.3-44.2); Mean Corpuscular HGB Conc 32.3 g/dl (32-36); Mean Corpuscular Hemoglobin 28.7 pg (26-34); Mean Corpuscular Volume 88.8 fl (80-100); Mean Platelet Volume 10.2 fl (7.4-10.4); Monocytes Absolute Auto 0.7 K/mm3 (0.1-0.6); Neutrophils Absolute Auto 2.4 K/mm3 (1.3-6.7); Neutrophils Percent Auto 46.8 % (45.5-73.1); Platelet Count Result 273 k/mm3 (150-375); Red Blood Count 4.81 M/mm3 (4.2-5.4); Red Cell Distribution Width 13.3 % (11.5-14.5); White Blood Count 5.1 K/mm3 (4.5-10.0)
[2024-12-16 15:45] LABS: Add Urine Microscopic? YES; Appearance Urine Clear (Clear); Bacteria Urine 1+ /hpf; Bilirubin Urine Negative (Negative); Blood Urine Negative (Negative); Color Urine Yellow (Yellow); Glucose Urine UA Negative (Negative); Ketones Urine Negative (Negative); Leukocyte Esterase Ur Negative LEU/UL (Negative); Nitrate Urine Negative (Negative); Non Pathogenic Casts 0-2; Protein Urine Trace mg/dL (Negative); RBC Urine 0-2 /hpf (0-2); Specific Grav Ur 1.026 (1.001-1.035); Squamous Epithelial Cell Urine Few /hpf (Few); Urobilinogen Urine 0.2 mg/dL (<2.0); WBC Urine 0-5 /hpf (0-3); pH Urine 5.5 (5.0-9.0)
[2024-12-16 15:47] LABS: BEDSIDEPREGUCG Negative (Negative)
[2024-12-16 15:47] LABS: Alanine Aminotransferase 31 U/L (6-35); Albumin Level 4.7 g/dL (3.5-5.1); Alkaline Phosphatase 59 U/L (38-126); Anion Gap 12 mmol/L (4-12); Aspartate Amino Transferase 33 U/L (14-36); Bilirubin,Total 0.4 mg/dL (0.2-1.3); Blood Urea Nitrogen 14 mg/dL (7-17); Calcium 9.1 mg/dL (8.4-10.2); Carbon Dioxide 24 mmol/L (22-30); Chloride 102 mmol/L (98-107); Estimated CRCL calculation 88 ml/min; Estimated Glomerular Filt Rate > 60; Glucose 81 mg/dL (65-110); Lipase 78 U/L (23-300); Potassium 4.2 mmol/L (3.4-5.0); Sodium 138 mmol/L (137-145)
[2024-12-16 16:02] LABS: Strep Group A RT-PCR NOT DETECTED (Negative)
[2024-12-16 16:14] LABS: Influenza A QL RT-PCR Positive (Negative); Influenza B QL RT-PCR Negative (Negative); RSV RNA, RT-PCR Negative (Negative); SARS-CoV-2 RNA PCR Negative (Negative)
--- OUTSIDE RECORDS SUMMARY | 2024-12-16 18:35 | XMS_ITS | Clinical Summary ---
Author Organization [facility] Address [address] [place] [address] Care Team Providers Care Rip Saw Operator Name Role Phone Unavailable Primary Care Provider Unavailabl e Source Comments [facility],non-owned Affiliates and Associated Physician Practices is amultiple site organization consisting of ambulatory clinics and hospital sitesin [place], [place]. This disclosure is being madepursuant to the Care Everywhere program and may not contain all information available regarding this patient. Last updated 18.[facility] [employer] Social History Tobacco Use Types Packs/Day Years [...]
--- OUTSIDE RECORDS SUMMARY | 2024-12-16 18:35 | XMS_ITS | Clinical Summary ---
Author Organization [facility] Address [address] [place] [address] Phone Care Team Providers Care Water Filtration Technician Name Role Phone Unavailable Primary Care Provider [...]
--- OUTSIDE RECORDS SUMMARY | 2024-12-16 18:35 | XMS_ITS | Referral Summary ---
Author Organization [facility] Address [address] [place] [address] Care Team Providers Care School Bus Attendant Name Role Phone Unavailable Primary Care Provider Unavailabl e Source Comments [facility],non-owned Affiliates and Associated Physician Practices is amultiple site organization consisting of ambulatory clinics and hospital sitesin [place], [place], [place] and [place]. This disclosure is being madepursuant to the Care Everywhere program and may not contain all information available regarding this patient. Last updated 18.[facility] [employer] Social History Tobacco Use Types Packs/Day Years [...]
--- OUTSIDE RECORDS SUMMARY | 2024-12-16 18:35 | XMS_ITS | Patient Health Summary ---
Author Organization [facility] Address [address] [facility] [place] [address] Care Team Providers Care Developer Support Engineer Name Role Phone Unavailable Primary Care Provider Unavailabl e Note from [facility],non-owned Affiliates and Associated Physician Practices is amultiple site organization consisting of ambulatory clinics and hospital sitesin [place], [place], [place] and [place]. This disclosure is being madepursuant to the Care Everywhere program and may not contain all information available regarding this patient. Last updated 18.[facility] [employer] Social History Tobacco Use Types Packs/Day Years [...] 01/24/2013) * PT-INR [facility](Performed 01/24/2013) * PTT [facility](Performed 01/24/2013) * URINALYSIS - POINT OF CARE (AMB) [facility](Performed 10/08/1998) Results * (ABNORMAL) BASIC METABOLIC PANEL (CALCIUM TOTAL) (04/14/2014 9:28 AM CDT) Only the most recent of8 resultswithin the time period is included. BUN 11 7 - 26 mg/dL [facility] Anion Gap 12 8 - 18 [facility] BUN/Creatinine Ratio 14 7 - 23 [...] Davis MD LAB - CHEMISTRY ORD ERABLES [address] [phone] * CT UROGRAM (04/14/2014 9:17 AM CDT) [...] ORDERABLES * CREATININE BLOOD - POCT (IP) [facility] (04/14/2014) Creatinine POCT 1.00 0.3 - 1.3 mg/dL [facility] eGFR POCT 60 60 ml/min [facility] 04/14/2014 Kyle Davis MD LAB - POINT OF CARE ORDERABLES [facility] * URINALYSIS AUTO - POINT OF CARE (AMB) [facility] (03/23/2014) Glucose UA neg [facility] Bilirubin UA POCT neg [facility] Ketones UA POCT neg [facility] Specific [place] UA 1.030 [facility] Blood Urine POCT neg [facility] pH UA 6.0 [facility] Protein UA neg [facility] Urobilinogen UA 3.5 [facility] Nitrite UA neg [facility] WBC UA neg [facility] Urine specimen (specimen) 03/23/2014 Kyle Davis MD LAB - POINT OF CARE ORDERABLES [facility] * (ABNORMAL) CBC W AUTO DIFFERENTIAL (03/05/2013 [...] - HEMATOLOGY ORD ERABLES [facility] [address] [place] [address] * EKG 12-LEAD (02/17/2013 9:59 AM CDT) Paul Johns MD ECG ORDERABLES Performing Organization Address City/[facility]/ZIP Co de Phone Number [facility] * (ABNORMAL) URINALYSIS W/MICROSCOPIC NO CULTURE (02/13/2013 11:55 AM CDT) Only the most recent of4 resultswithin the time period is included. Color UA RED(A) STRW,YELLOW [facility] Clarity UA CLOUDY(A) CLEAR [facility] Specific [place] Urine > 1.040(H) 1.001 - 1.030 [facility]. [...] LAB - URINALYSIS ORDERABLES Performing Organization Address City/[facility]/ZIP Co de Phone Number [address] [phone] * HCG URINE QUALITATIVE (02/13/2013 11:55 AM CDT) Only the most recent of2 resultswithin the time period is included. Test Urine NEGATIVE NEGATIVE [facility] Urine specimen (specimen) URINE SPECIMEN OBTAINED BY CLEAN CATCH PROCEDURE / Unknown 02/13/2013 11:55 AM CDT 02/13/2013 2:34 PM CDT lAan Cotter MD LAB - URINALYSIS ORDERABLES [address] [phone] * (ABNORMAL) COMPREHENSIVE METABOLIC PANEL (02/13/2013 11:55 [...] HOSPITAL Anion Gap 19(H) 8 - 18 [facility] BUN/Creatinine Ratio 15 7 - 23 [facility] Osmolality Calculation 274 270 - 300 mOsm/kg [facility] Albumin/Globulin Ratio 0.7(L) 1.1 - 2.3 [facility] Serum 02/13/2013 11:5 5 AM CDT 02/13/2013 2:34 PM CDT Alan Cotter MD LAB - CHEMISTRY O RDERABLES Performing Organization Address [facility]/[place] [address], [facility] [phone] * (ABNORMAL) CK BLOOD (02/13/2013 11:55 AM CDT) Only the most recent of2 resultswithin the time period is included. CK Total 22(L) 30 - 200 Units/L [facility] Serum 02/13/2013 11:5 5 AM CDT 02/13/2013 2:34 PM CDT Alan Cotter MD LAB - CHEMISTRY O RDERABLES Performing Organization Address [facility] [email or web address]] [place] [address], [facility] [phone] * XR ABDOMEN 2VW (02/06/2013 2:13 PM CDT) Anatomical Region Laterality Modality Other Impressions 02/06/2013 5:36 PM CDT Impression: Nonobstructive bowel gas pattern with small volume stool scattered to the colon and rectum as well as nonspecific air-fluid levels. Reported dictated by Jann Moore MD (resident care provider). IDr. Kailash M.D. have personally reviewed and [...] levels. Reported dictated by Jann Moore MD (resident care provider). Dr. Kailash Jenkins M.D. have personally reviewed [...] fissure. Report dictated by Carole Greco M.D. (resident care provider). This report was approved by Carole Greco [...] thefissure. Report dictated by Carole Greco M.D. (resident care provider). This report was approved by Carole Greco [...] included. WBC 10.7(H) 3.5 - 10.5 10^3/uL [facility] RBC 2.98(L) 3.90 - 5.00 [...] HOSPITAL RDW-SD 44.8 36 - 50 [place] [facility] MPV 9.2(L) 9.3 - 12.8 [place] [facility] Venous blood specimen (specimen) 02/01/2013 3:00 AM CDT 02/01/2013 4:03 AM CDT Paul Johns MD LAB - HEMATOLOGY ORD ERABLES [address] [phone] * PHOSPHORUS BLOOD (02/01/2013 3:00 AM CDT) Only the most recent of7 resultswithin the time period is included. Phosphorus 4.2 2.3 - 4.7 mg/dL [facility] Serum 02/01/2013 3:00 AM CDT 02/01/2013 4:03 AM CDT Paul Johns MD LAB - CHEMISTRY ORDE MARYJO [address] [phone] * MAGNESIUM BLOOD (02/01/2013 3:00 AM CDT) Only the most recent of7 resultswithin the time period is included. Magnesium 2.0 1.6 - 2.6 mg/dL [facility] Serum 02/01/2013 3:00 AM CDT 02/01/2013 4:03 AM CDT Paul Johns MD LAB - CHEMISTRY MARIS ILEANAALESHIA [facility] Organization Address City/State/ZIP Co de Phone Number [address] [phone] * [place] CYSTOGRAM (01/31/2013 8:00 AM CDT) [...] change. Reported dictated by Jann Moore MD (resident care provider). This report was approved by Jann Moore [...] intervalchange. Reported dictated by Jann Moore MD (resident care provider). This report was approved by Jann Moore [...] Cotter MD LAB - CHEMISTRY O RDERABLES [address] [phone] * AMYLASE BLOOD (01/27/2013 11:45 AM CDT) Only the most recent of9 resultswithin the time period is included. Amylase 40 25 - 125 Units/L [facility] Serum 01/27/2013 11:4 5 AM CDT 01/27/2013 11:55 AM CDT Alan Cotter MD LAB - CHEMISTRY O RDERABLES Performing Organization Address [facility]/ZIP Co de Phone Number [address] [phone] * (ABNORMAL) PREALBUMIN (01/27/2013 12:15 AM CDT) Pathologist [facility] Prealbumin 8(L) 16 - 45 mg/dL [facility] Venous blood specimen (specimen) 01/27/2013 12:15 AM CDT 01/27/2013 12:30 AM CDT Kate Harrell MD LAB - CHEMISTRY MARIS SIBELY Performing Organization Address [facility] [[email or web address]] Co de Phone Number [address] [phone] * (ABNORMAL) PTT [facility] (01/27/2013 12:05 AM [...] Harrell MD LAB - COAGULATION OR DERABLES [address] [phone] * (ABNORMAL) PT-INR [facility] (01/27/2013 12:05 AM [...] - COAGULATION OR DERABLES Performing Organization Address City/[facility]/ZIP Co de Phone Number [address] [phone] * (ABNORMAL) BLOOD GASES ART (01/27/2013 12:05 [...] HOSPITAL Carboxyhemoglobin 2.2 0 - 3 % [facility] Methemoglobin 1.4 0 - 2.0 % [facility] FI O2 Arterial 21 [facility] Arterial blood specimen (specimen) 01/27/2013 12:05 AM CDT 01/27/2013 12:28 AM CDT Narrative [facility] - 01/27/2013 12:33 AM CDT FiO2->35% Paul Johns MD LAB - BLOOD GASES OR DERABLES Performing Organization Address [facility]/ZIP Co de Phone Number [address] [phone] * CULTURE URINE (01/26/2013 10:10 AM CDT) Culture Urine NO GROWTH OF >100 CFU/ML AFTER 48 HOURS. [facility] Urine specimen (specimen) 01/26/2013 10:10 AM CDT 01/26/2013 10:52 AM CDT Narrative [facility] - 01/28/2013 4:33 PM CDT Specimen Type->Urine Paul Johns MD LAB - MICROBIOLOGY O RDERABLES Performing Organization Address [facility] [[email or web address]] Co de Phone Number [address] [phone] * (ABNORMAL) TEG PLATELET MAPPING (01/26/2013 5:44 [...] BLOOD BANK ORD ERABLES Performing Organization Address [facility] [[email or web address]] Co de Phone Number [address] [phone] * PATHOLOGY INTERPRETATION (01/26/2013 5:44 AM CDT) [...] - PATHOLOGY/CYTO LOGY ORDERABLES Performing Organization Address [facility]/ZIP Co de Phone Number [address] [phone] * CULTURE BLOOD (01/26/2013 12:32 AM CDT) [...] - MICROBIOLOGY O RDERABLES Performing Organization Address [facility] [[email or web address]] Co de Phone Number [address] [phone] * PREPARE PLATELET PHERESIS UNIT(S) (01/24/2013 9:30 AM CDT) Blood Product [id number] O- SDP-WBCD TRANSFUSED 01/24/13 0944 [facility] 01/24/2013 9:30 AM CDT 01/24/2013 9:30 AM CDT Paul Johns MD LAB - BLOOD BANK ORD ERABLES Performing Organization Address [facility] [[email or web address]] Co de Phone Number [address] [phone] * HCG URINE QUALITATIVE - POCT (IP) [facility] (01/24/2013 6:29 AM CDT) Test Urine NEGATIVE [facility] Urine specimen (specimen) 01/24/2013 6:29 AM CDT Paul Johns MD LAB - POINT OF CARE ORDERABLES Performing Organization Address [facility] [[email or web address]] Co de Phone Number [facility] * DRUG ABUSE PANEL 10-20+ETHANOL URINE NO [...] or mass spectrometry. Toxicology testing by the [facility] is an aid to medical diagnosis and treatment of patients. No documented chain of custody was maintained. Results are intended to be used for clinical purposes only. Note [facility] Comment: The UTOX Panel does not screen for Propoxyphene, Meprobamate, Carisoprodol, Trazodone, emws-xaa-avwdzhu medications and/or volatiles (Acetone, Isopropanol, Methanol, Ethylene Glycol). Ethanol, Salicylate, Acetaminophen, Tricyclic Antidepressants and several therapeutic drugs may be individually assayed in a serum specimen. Urine specimen (specimen) URINE SPECIMEN COLLECTION, CATHETERIZED / Unknown 01/24/2013 6:25 AM CDT 01/24/2013 7:37 AM CDT Paul Johns MD LAB - URINE CHEMISTR Y ORDERABLES Performing Organization Address [facility]/ZIP Co de Phone Number [address] [phone] * (ABNORMAL) URINALYSIS REFLEX TO MICROSCOPIC NO CULTURE (01/24/2013 6:25 AM CDT) Only the most recent of2 resultswithin the time period is included. RBC Urine > 3640(H) 0 - 8 /HPF [facility] Comment:RESULT CONFIRMED BY DILUTION Bacteria Urine OCCASIONAL (A) <OCCASIONA L /HPF [facility] Mucus Urine FEW(A) NONE SEEN /LPF [facility] 01/24/2013 6:25 AM CDT 01/24/2013 7:37 AM CDT Paul Johns MD LAB - URINALYSIS ORD ERABLES Performing Organization Address City/[facility]/ZIP Co de Phone Number [address] [phone] * XR KNEE LEFT 3VW (01/24/2013 5:33 AM CDT) Anatomical Region Laterality Modality Lower Extremity Other Impressions 01/24/2013 9:03 AM CDT Impression: 1. No acute osseous injury. 2. Radiodense material along the lateral knee soft tissues possibly representing foreign bodies. Reported dictated by Jann Moore MD (resident care provider). Dr. ELY Jenkins M.D. have personally reviewed [...] bodies. Reported dictated by Jann Moore MD (resident care provider). Dr. ELY Jenkins M.D. have personally reviewed and interpreted thisexamination/study. This report was electronically signed by ELY GASTON M.D. on 01/24/20139:03 AM . Paul Johns MD DIAGNOSTIC IMAGING O RDERABLES * XR KNEE RIGHT 3VW (01/24/2013 5:33 AM CDT) Anatomical Region Laterality Modality Lower Extremity Other Impressions 01/24/2013 9:02 AM CDT Impression: No acute osseous injury. Reported dictated by Jann Moore MD (resident care provider). Dr. ELY Jenkins M.D. have personally reviewed [...] injury. Reported dictated by Jann Moore MD (resident care provider). I, Dr. ELY GASTON M.D. have personally [...] electronically signed by Kailash WINSTON M.D. on 01/24/2013 10:45 AM . Narrative [...] There is a subchondral cyst in the Y6nssxxbylv body. The intervertebral discs appear normal. No [...] There is a subchondral cyst in the M9oectyyshw body. The intervertebral discs appear normal. No [...] There is a subchondral cyst in the N6hvhlloync body. The intervertebral discs appear normal. No [...] the dedicated body CT report. Procedure Note Manihs Bradshaw MD - 01/06/2018 EXAMINATION: 1. Computed [...] There is a subchondral cyst in the R1vhbhvaeem body. The intervertebral discs appear normal. No [...] There is a subchondral cyst in the B0nqjpvndsl body. The intervertebral discs appear normal. No [...] the time period is included. Blood Product [id number] O- RBC-WBCD XM COMPATIBLE [id number] O- RBC-WBCD TRANSFUSED 01/26/13 0336 [facility] 01/24/2013 4:35 AM CDT 01/24/2013 4:56 AM CDT Paul Johns MD LAB - BLOOD BANK ORD ERABLES Performing Organization Address [facility] [[email or web address]] Co de Phone Number [address] [phone] * TYPE + SCREEN PANEL (01/24/2013 4:35 AM CDT) Only the most recent of2 resultswithin the time period is included. Interpretation ABO/Rh Patient O NEG [facility] Antibody Screen NEGATIVE [facility] 01/24/2013 4:35 AM CDT 01/24/2013 4:56 AM CDT Paul Johns MD LAB - BLOOD BANK ORD ERABLES Performing Organization Address [facility] [[email or web address]] [place] [address], [facility] [phone] * ALCOHOL ETHYL BLOOD (01/24/2013 4:35 AM [...] - CHEMISTRY MARIS SIBLEY Performing Organization Address [facility] [[email or web address]] Co de Phone Number [address] [phone] * (ABNORMAL) URINALYSIS - POINT OF CARE (AMB) [facility] (10/08/1998 12:00 AM TOP SPOTTER) Glucose UA neg [facility] Bilirubin UA POCT neg [facility] Ketones UA POCT neg [facility] Specific [place] UA 1.020 [facility] Blood Urine POCT 200 jackson/ul(A) [facility] pH UA 5.5 [facility] Protein UA 15(A) [facility] Urobilinogen UA 0.2 [facility] Nitrite UA neg [facility] WBC UA neg [facility] Urine specimen (specimen) 10/08/1998 Violetta Rogers MD LAB - POINT OF CARE ORDERABLES [facility]
[2024-12-16 18:53] VITALS: BP 140/92; PULSE 89; RESP 20; TEMP 36.8; O2SAT 98
== END 2024-12-16 18:54 | disposition home or self-care (01) ==
LOC: ANHED 18:32
PROVIDERS: Physician Assistant; Emergency Provider Physician Assistant; PCP Family Medicine
DX: J10.1 Influenza due to other identified influenza virus with other respiratory manifestations (principal); M61.9 Calcification and ossification of muscle, unspecified; F41.9 Anxiety disorder, unspecified; F90.9 Attention-deficit hyperactivity disorder, unspecified type
CPT/HCPCS: 36415; 71046; 73564; 80053; 81001; 81025; 83690; 85025; 87637; 87651; 99284